=== PATIENT | male | born 1935 | race Caucasian/White ===

== ENCOUNTER 2020-01-31 12:43 | Emergency (ER) | payer MEDICARE ==
[~2020-01-31] VITALS: Ht 172.7 cm; Wt 66.0 kg
[~2020-01-31 12:43] MED LIST: ALBU8.5H6 INH; ASPI325T8 PO; DOXA2TAB2 PO; FAMO20TA5 PO; LEVO112T49 PO; LORA0.5T PO; LOSA100T14 PO; LOVA40TA2 PO; OMEP20TA8 PO
[2020-01-31 14:21] LABS: BASO % 1 % (0-3); EOS # 0.4 x10^3/uL (0.0-0.7); EOS % 5 % (0-3); HEMATOCRIT 39.3 % (39.0-53.0); HEMOGLOBIN 13.2 g/dL (13.0-17.5); LYMPH # 1.3 x10^3/uL (1.0-4.8); LYMPH % 16 % (24-48); MEAN CORPUSCULAR HEMOGLOBIN 30 pg (25-35); MEAN CORPUSCULAR HGB CONC 34 g/dL (31-37); MEAN CORPUSCULAR VOLUME 90 fL (79-100); MONO # 0.8 x10^3/uL (0.0-1.1); MONO % 10 % (0-9); NEUT # 5.4 x10^3/uL (1.8-7.7); NEUT % 69 % (31-73); PLATELET COUNT 264 x10^3/uL (140-400); RED BLOOD COUNT 4.37 x10^6/uL (4.30-5.70); RED CELL DISTRIBUTION WIDTH 14.4 % (11.5-14.5); WHITE BLOOD COUNT 7.9 x10^3/uL (4.0-11.0)
--- NOTE | 2020-01-31 14:41 | EKG ---
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
[2020-01-31 14:44] LABS: CALCIUM 8.9 mg/dL (8.5-10.1); POTASSIUM 4.2 mmol/L (3.5-5.1)
[2020-01-31 14:47] LABS: ALBUMIN 2.9 g/dL (3.4-5.0); ALBUMIN/GLOBULIN RATIO 0.7 (1.0-1.7); TOTAL BILIRUBIN 0.3 mg/dL (0.2-1.0)
--- NOTE | 2020-01-31 15:02 | RAD ---
CT HEAD INDICATION: Confusion, unsteady gait COMPARISON: 04/03/2014 Exposure: One or more of the following individualized dose reduction techniques were utilized for this examination: 1. Automated exposure control 2. Adjustment of the mA and/or kV according to patient size 3. Use of iterative reconstruction technique TECHNIQUE: 5 mm contiguous axial images were obtained from the skull base to the vertex in both bone and soft tissue algorithm. FINDINGS: Mild bilateral periventricular white matter hypodensities likely chronic small vessel ischemic disease. Mild age-related cerebral atrophy changes. No abnormal attenuation within the brain parenchyma. No evidence of acute intracranial hemorrhage. No extra-axial fluid collections. No mass effect or midline shift. Ventricular size is appropriate. Basal cisterns are patent. No fractures identified.Avila-white differentiation is preserved.Globes and orbits are within normal limits. Paranasal sinuses and mastoid air cells are clear. IMPRESSION: No acute intracranial findings. Electronically signed by: Wellington Desai MD (01/31/2020 2:59 PM) [id number]
--- NOTE | 2020-01-31 15:36 | PHYS DOC ---
Past Medical History Past Medical History: Anxiety, High Cholesterol, Hypertension, Other Additional Past Medical Histor: emphysema Past Surgical History: Appendectomy, Tonsillectomy Smoking Status: Former Smoker Alcohol Use: None Drug Use: None General Adult EDM: Chief Complaint: NEURO SYMPTOMS/DEFICITS HPI: HPI: Patient is a 84 year old male who was brought here by his son for evaluation of increased memory loss, forgetfulness. Patient also sometimes has unsteady gait when he walks. The symptoms have been going on for about 3 months. Patient son who brought the patient here indicate that patient appeared to be normal to him. Patient's son who do not live with patient. Patient's called here and provide the information. Patient denies any headache, no chest pain, no abdominal pain, no nausea vomiting. Patient denies any fever, no headache, no neck pain, no slow speech, no weakness anywhere. Patient said he has COPD. Patient said he had not been exposed to anybody who tested positive COVID-19. Review of Systems: Review of Systems: Constitutional: Denies fever or chills. [] Eyes: Denies change in visual acuity. [] HENT: Denies nasal congestion or sore throat. [] Respiratory: Denies cough or shortness of breath. [] Cardiovascular: Denies chest pain or edema. [] GI: Denies abdominal pain, nausea, vomiting, bloody stools or diarrhea. [] : Denies dysuria. [] Musculoskeletal: Denies back pain or joint pain. [] Integument: Denies rash. [] Neurologic: Denies headache, focal weakness or sensory changes. Positive for memory loss, unsteady gait Endocrine: Denies polyuria or polydipsia. [] Lymphatic: Denies swollen glands. [] Psychiatric: Denies depression or anxiety. [] Heart Score: Risk Factors: Risk Factors: DM, Current or recent (<one month) smoker, HTN, HLP, family his tory of CAD, obesity. Risk Scores: Score 0 - 3: 2.5% MACE over next 6 weeks - Discharge Home Score 4 - 6: 20.3% MACE over next 6 weeks - Admit for Clinical Observation Score 7 - 10: 72.7% MACE over next 6 weeks - Early Invasive Strategies Allergies: Allergies: Allergies Coded Allergies Type Severity Reaction Last Updated Verified Sulfa (Sulfonamide Antibiotics) Allergy Intermediate itching 05/17/14 Yes dicyclomine Allergy Intermediate itching 05/17/14 Yes Physical Exam: PE: Constitutional: Well developed, well nourished, no acute distress, non-toxic appearance. [] HENT: Normocephalic, atraumatic, bilateral external ears normal, oropharynx moist, no oral exudates, nose normal. [] Eyes: PERRLA, EOMI, conjunctiva normal, no discharge. [] Neck: Normal range of motion, no tenderness, supple, no stridor. [] Cardiovascular:Heart rate regular rhythm, no murmur [] Lungs & Thorax: Bilateral breath sounds clear to auscultation [] Abdomen: Bowel sounds normal, soft, no tenderness, no masses, no pulsatile masses. [] Skin: Warm, dry, no erythema, no rash. [] Back: No tenderness, no CVA tenderness. [] Extremities: No tenderness, no cyanosis, no clubbing, ROM intact, no edema. [] Neurologic: Alert and oriented X 3, normal motor function, normal sensory function, no focal deficits noted. [] Psychologic: Affect normal, judgement normal, mood normal. [] Current Patient Data: Labs: Laboratory Tests Test 01/31/20 14:10 White Blood Count 7.9 x10^3/uL (4.0-11.0) Red Blood Count 4.37 x10^6/uL (4.30-5.70) Hemoglobin 13.2 g/dL (13.0-17.5) Hematocrit 39.3 % (39.0-53.0) Mean Corpuscular Volume 90 fL (79-100) Mean Corpuscular Hemoglobin 30 pg (25-35) Mean Corpuscular Hemoglobin Concent 34 g/dL (31-37) Red Cell Distribution Width 14.4 % (11.5-14.5) Platelet Count 264 x10^3/uL (140-400) Neutrophils (%) (Auto) 69 % (31-73) Lymphocytes (%) (Auto) 16 % (24-48) L Monocytes (%) (Auto) 10 % (0-9) H Eosinophils (%) (Auto) 5 % (0-3) H Basophils (%) (Auto) 1 % (0-3) Neutrophils # (Auto) 5.4 x10^3/uL (1.8-7.7) Lymphocytes # (Auto) 1.3 x10^3/uL (1.0-4.8) Monocytes # (Auto) 0.8 x10^3/uL (0.0-1.1) Eosinophils # (Auto) 0.4 x10^3/uL (0.0-0.7) Basophils # (Auto) 0.0 x10^3/uL (0.0-0.2) Prothrombin Time 13.0 SEC (11.7-14.0) Prothrombin Time INR 1.0 (0.8-1.1) Activated Partial Thromboplast Time 28 SEC (24-38) Sodium Level 136 mmol/L (136-145) Potassium Level 4.2 mmol/L (3.5-5.1) Chloride Level 99 mmol/L (98-107) Carbon Dioxide Level 30 mmol/L (21-32) Anion Gap 7 (6-14) Blood Urea Nitrogen 25 mg/dL (8-26) Creatinine 1.0 mg/dL (0.7-1.3) Estimated GFR (Cockcroft-Gault) 71.0 BUN/Creatinine Ratio 25 (6-20) H Glucose Level 136 mg/dL (70-99) H Calcium Level 8.9 mg/dL (8.5-10.1) Total Bilirubin 0.3 mg/dL (0.2-1.0) Aspartate Amino Transferase (AST) 19 U/L (15-37) Alanine Aminotransferase (ALT) 19 U/L (16-63) Alkaline Phosphatase 66 U/L (46-116) Troponin I Quantitative < 0.017 ng/mL (0.000-0.055) Total Protein 7.0 g/dL (6.4-8.2) Albumin 2.9 g/dL (3.4-5.0) L Albumin/Globulin Ratio 0.7 (1.0-1.7) L Lipase 72 U/L (73-393) L Laboratory Tests 01/31/20 14:10 Laboratory Tests 01/31/20 14:10 Vital Signs: Vital Signs Date Time Temp Pulse Resp B/P (MAP) Pulse Ox O2 Delivery O2 Flow Rate FiO2 01/31/20 13:27 98.3 83 16 149/87 (107) 97 Room Air 98.3 EKG: EKG: EKG was done at 1403, read by this physician, heart rate of 89 bpm, sinus rhythm, some PVC, no ST segment elevation. [] Radiology/Procedures: Radiology/Procedures: [][facility] [address] [place] [address] IMAGING REPORT Signed PATIENT: TERRANCE AGARWAL ACCOUNT: [id number] : 1935 LOCATION: ER AGE: 84 SEX: M EXAM STATUS: REG ER ORD. PHYSICIAN: LASHAUN HONG DO REASON: being confused, unsteady gait PROCEDURE: CT HEAD WO CONTRAST CT HEAD INDICATION: Confusion, unsteady gait COMPARISON: 04/03/2014 Exposure: One or more of the following individualized dose reduction techniques were utilized for this examination: 1. Automated exposure control 2. Adjustment of the mA and/or kV according to patient size 3. Use of iterative reconstruction technique TECHNIQUE: 5 mm contiguous axial images were obtained from the skull base to the vertex in both bone and soft tissue algorithm. FINDINGS: Mild bilateral periventricular white matter hypodensities likely chronic small vessel ischemic disease. Mild age-related cerebral atrophy changes. No abnormal attenuation within the brain parenchyma. No evidence of acute intracranial hemorrhage. No extra-axial fluid collections. No mass effect or midline shift. Ventricular size is appropriate. Basal cisterns are patent. No fractures identified.Avila-white differentiation is preserved.Globes and orbits are within normal limits. Paranasal sinuses and mastoid air cells are clear. IMPRESSION: No acute intracranial findings. Electronically signed by: Wellington Desai MD (01/31/2020 2:59 PM) [id number] DICTATED and SIGNED BY: WELLINGTON DESAI MD DATE: 01/31/20 1459 Course & Med Decision Making: Course & Med Decision Making Pertinent Labs and Imaging studies reviewed. (See chart for details) Patient is an 84-year-old male who was evaluated in the ER due to progressive memory loss. Sometimes unsteady gait. Patient has been eating and drinking in the ED without any problem, he has been walking by himself without a problem. Work-up in the ED did not show any acute problem. Patient was awake alert oriented. Patient's speech was normal, no focal deficits. Patient did not need to be admitted to the hospital for symptoms of been going on for 3 months. Patient will need to follow-up with her family doctor for outpatient evaluation. Brigida Disclaimer: Brigida Disclaimer: This electronic medical record was generated, in whole or in part, using a voice recognition dictation system. Departure Departure Impression: Primary Impression: Dementia Additional Impression: Weakness Disposition: HOME, SELF-CARE Condition: IMPROVED Referrals: KORINA ENRIQUEZ MD (PCP) PLEASE FOLLOW UP WITH YOUR FAMILY DOCTOR FOR OUTPATIENT EVALUATION WITH MRI OF YOUR BRAIN Patient Instructions: Dementia, Weakness LASHAUN HONG DO January 31, 2020 15:36
[2020-01-31] MEDS ORDERED: IV NORMAL SALINE 500ML BAG 500 ML IV ONE (16:15)
--- NOTE | 2020-01-31 16:34 | RAD ---
EXAM: AP View of the chest DATE: 01/31/2020 4:11 PM INDICATION: Cough COMPARISON: 04/03/2014 FINDINGS: The heart is not enlarged. Mediastinal and hilar contours are stable. Bilateral interstitial prominence is seen. No lobar consolidation. Trace blunting left costophrenic angle likely trace left pleural effusion. No pneumothorax. IMPRESSION: Bilateral interstitial prominence is seen findings may be seen with atypical infectious or inflammatory process. Interstitial edema may also result in this appearance Electronically signed by: René De Paz MD (01/31/2020 4:31 PM) NIDIA
[2020-01-31 16:42] LABS: BILIRUBIN,URINE NEGATIVE (NEG); CLARITY,URINE CLEAR; COLOR,URINE YELLOW; NITRITE,URINE NEGATIVE (NEG); PH,URINE 6.5 (<5.0-8.0); PROTEIN,URINE NEGATIVE (NEG-TRACE); UROBILINOGEN,URINE 0.2 mg/dL (0.2 mg/dL)
[2020-01-31 16:43] LABS: BACTERIA,URINE 0 /HPF (0-FEW); HYALINE CASTS, URINE FEW /HPF; RBC,URINE 0 /HPF (0-2); WBC,URINE 0 /HPF (0-4)
[2020-01-31 17:44] VITALS: BP 181/100
== END 2020-01-31 18:10 | disposition home or self-care (01) ==
LOC: ER 12:43
DX: F03.90 Unspecified dementia, unspecified severity, without behavioral disturbance, psychotic disturbance, mood disturbance, and anxiety (principal); R53.1 Weakness; R41.3 Other amnesia; F41.9 Anxiety disorder, unspecified; E78.00 Pure hypercholesterolemia, unspecified; I10 Essential (primary) hypertension; Z90.89 Acquired absence of other organs; Z98.890 Other specified postprocedural states; Z87.891 Personal history of nicotine dependence; Z88.2 Allergy status to sulfonamides; Z88.6 Allergy status to analgesic agent
CPT/HCPCS: 36415; 70450; 71045; 80053; 81001; 83690; 84484; 85025; 85610; 85730; 93005; 99285; J7040

== ENCOUNTER 2020-05-17 16:30 | Emergency (ER) | payer MEDICARE ==
[~2020-05-17] VITALS: Ht 172.7 cm; Wt 59.1 kg
--- NOTE | 2020-05-17 17:23 | PHYS DOC ---
Past Medical History Past Medical History: Anxiety, High Cholesterol, Hypertension Additional Past Medical Histor: emphysema Past Surgical History: Appendectomy, Tonsillectomy Smoking Status: Former Smoker Alcohol Use: None Drug Use: None General Adult EDM: Chief Complaint: ABDOMINAL PAIN HPI: HPI: Patient is a 85 year old male, accompanied by his , with complaints of constipation for the last 4 to 5 days. Patient reports that he gave himself a fleets enema at home at approximately 1530 this afternoon and has since developed bloody liquid stool and rectal pressure. He denies any nausea, vomiting, abdominal pain, shortness of breath, chest pain, palpitations, fever, fatigue, dysuria, hematuria, or difficulty with urination. Patient denies any recent use of opiates. He reports that the blood from his rectum appeared bright red in color. He denies having any black or tarry stools prior to the onset of the bleeding after the enema this evening. He currently rates the pain a 6 out of 10 on the pain scale is located in his rectum, it does not radiate, the pain feels like pressure. He denies any alleviating factors, the pain became worse after the enema. Review of Systems: Review of Systems: Constitutional: Denies fever or chills. [] HENT: Denies nasal congestion or sore throat. [] Respiratory: Denies cough or shortness of breath. [] Cardiovascular: Denies chest pain or edema. [] GI: Denies abdominal pain, nausea, or vomiting; see HPI : Denies dysuria. [] Musculoskeletal: Denies back pain or joint pain. [] Integument: Denies rash. [] Neurologic: Denies headache Psychiatric: Denies depression or anxiety. [] Heart Score: Risk Factors: Risk Factors: DM, Current or recent (<one month) smoker, HTN, HLP, family history of CAD, obesity. Risk Scores: Score 0 - 3: 2.5% MACE over next 6 weeks - Discharge Home Score 4 - 6: 20.3% MACE over next 6 weeks - Admit for Clinical Observation Score 7 - 10: 72.7% MACE over next 6 weeks - Early Invasive Strategies Allergies: Allergies: Allergies Coded Allergies Type Severity Reaction Last Updated Verified Sulfa (Sulfonamide Antibiotics) Allergy Intermediate itching 05/17/14 Yes dicyclomine Allergy Intermediate itching 05/17/14 Yes Physical Exam: PE: Constitutional: Well developed, well nourished, no acute distress, non-toxic appearance. [] HENT: Normocephalic, atraumatic, bilateral external ears normal, nose normal. [] Eyes: PERRLA, EOMI, conjunctiva normal, no discharge. [] Neck: Normal range of motion, no stridor. [] Cardiovascular:Heart rate regular rhythm Lungs & Thorax: Respirations even and unlabored, no retractions, no respiratory distress, lungs CTA Abdomen: soft, no tenderness, bowel sounds active Rectal Exam: Elisa GONZALEZ as machine molder squeeze normal tone, large mass of impacted stool, Positive control, visible hemorrhoids without thrombosis Stool: Brown with bright red streaks likely due to hemorrhoids present Guaiac: Positive Skin: Warm, dry, no erythema, no rash. [] Extremities: No cyanosis, ROM intact, no edema. [] Neurologic: Alert and oriented X 3, no focal deficits noted. [] Psychologic: Affect normal, judgement normal, mood normal. [] Current Patient Data: Vital Signs: Vital Signs Date Time Temp Pulse Resp B/P (MAP) Pulse Ox O2 Delivery O2 Flow Rate FiO2 05/17/20 16:45 98.2 94 18 110/69 (83) 96 Nasal Cannula 2.0 98.2 EKG: EKG: [] Radiology/Procedures: Radiology/Procedures: PROCEDURE: CT ABD PELV W/ IV CONTRST ONLY CT scan of the abdomen and pelvis with contrast 05/17/2020 CLINICAL HISTORY: Rectal bleeding after home enema. TECHNIQUE: After the intravenous administration of 75 cc of Omnipaque 300 only, contiguous, 5 mm axial sections were obtained through the abdomen and pelvis. One or more of the following individualized dose reduction techniques were utilized for this study: 1. Automated exposure control. 2. Adjustment of the mA and/or kV according to patient size. 3. Use of iterative reconstruction technique. FINDINGS: Images through the lung bases demonstrate bronchiectasis bilaterally. Areas of honeycombing are seen bilaterally. The liver, spleen, pancreas, and adrenal glands are within normal limits. A 3 mm nonobstructing calculus is seen involving the midpole of the right kidney. A 2 mm nonobstructing calculus is seen involving the lower pole of the left kidney. Rounded low-attenuation lesions are seen involving both kidneys which measure 5 mm to 2.3 cm in size. They likely represent cysts. No further imaging workup is recommended. The gallbladder is slightly contracted. Atherosclerotic calcification of the abdominal aorta and its branches is noted. The abdominal aorta is focally dilated in its mid/distal portion measuring 3.1 cm in greatest AP diameter and 2.8 cm in greatest transverse diameter. No extension to involve either common iliac artery is seen. A moderate amount of stool is seen throughout the colon. Multiple diverticula are seen involving the colon. No inflammatory changes are seen in the adjacent fat. There is no evidence of bowel obstruction. No free fluid or free air is seen within the abdomen. Images through the pelvis demonstrate the urinary bladder distended with urine. The prostate gland is enlarged likely related to BPH. A moderate to large amount of stool is seen within the rectum. Calcifications are seen within the pelvis consistent with phleboliths. Very mild S-shaped curvature of the thoracolumbar spine is seen. Degenerative changes are seen involving the lower thoracic and throughout the lumbar spine along with both hips. IMPRESSION: 1. 3.1 cm focal infrarenal abdominal aortic aneurysm. 2. Colonic diverticulosis. 3. No acute abnormality is seen. [] Course & Med Decision Making: Course & Med Decision Making Pertinent Labs and Imaging studies reviewed. (See chart for details) 85-year-old male presented to the emergency department with complains of increased pain in his rectum after doing an enema for constipation. Work-up included labs, CT abdomen pelvis with IV contrast, and a rectal exam with disimpaction by myself CBC revealed a hemoglobin of 12.1, hematocrit of 35.9, otherwise unremarkable; PT/INR within normal limits; CMP revealed a BUN of 27, glucose of 129, otherwise unremarkable; stool was occult positive. CT abdomen revealed no free air or acute findings to suggest perforation. The patient was given a fleets enema in the emergency department following the CT. He reported feeling better after the bowel movement. Patient's vital signs are stable throughout the emergency department discharge his oxygen saturation was 96 to 97% on room air. A prescription was written for MiraLAX. The patient was instructed to drink 1 capful in 8 ounces of water or juice twice a day for the next 3 days then once daily until stools are regular. I recommend that the patient follow-up with his primary care doctor next week, return to the ER symptoms worsen. Patient and his verbalized an understanding of home care, medications, follow-up, and return to ED instructions and were in agreement with the plan of care. [] Dragon Disclaimer: Dragon Disclaimer: This electronic medical record was generated, in whole or in part, using a voice recognition dictation system. Departure Departure Impression: Primary Impression: Impacted stool in rectum Additional Impression: Constipation Qualified Codes: K59.00 - Constipation, unspecified Disposition: HOME, SELF-CARE Condition: STABLE Referrals: KORINA ENRIQUEZ MD (PCP) Patient Instructions: Constipation, Adult, [id number], Fecal Impaction Additional Instructions: Fill prescriptions and use them as directed. Increase clear fluid intake, follow the constipation prescriptions provided. Follow-up with your primary care doctor in 1 to 2 days, return to the ER if symptoms worsen. Scripts Polyethylene Glycol 3350 (MIRALAX) 119 Gm Powder 17 GM PO BID for constipation for 5 Days, #255 GM 0 Refills Drink 1 capful in 8 oz of water twice daily for 5 days then once a day to keep stools regular Prov: BISI ESTEVES PUBLIC HEALTH INSPECTOR 05/17/20 Justicifation of Admission Dx: Justifications for Admission: Justification of Admission Dx: N/A BISI ESTEVES PUBLIC HEALTH INSPECTOR May 17, 2020 17:23
[2020-05-17 17:31] LABS: BASO # 0.1 x10^3/uL (0.0-0.2); BASO % 1 % (0-3); EOS # 0.4 x10^3/uL (0.0-0.7); EOS % 5 % (0-3); HEMATOCRIT 35.9 % (39.0-53.0); HEMOGLOBIN 12.1 g/dL (13.0-17.5); LYMPH # 0.9 x10^3/uL (1.0-4.8); LYMPH % 11 % (24-48); MEAN CORPUSCULAR HEMOGLOBIN 29 pg (25-35); MEAN CORPUSCULAR HGB CONC 34 g/dL (31-37); MEAN CORPUSCULAR VOLUME 87 fL (79-100); MONO # 0.7 x10^3/uL (0.0-1.1); MONO % 9 % (0-9); NEUT % 75 % (31-73); PLATELET COUNT 420 x10^3/uL (140-400); RED BLOOD COUNT 4.12 x10^6/uL (4.30-5.70); RED CELL DISTRIBUTION WIDTH 15.9 % (11.5-14.5)
[2020-05-17 17:38] LABS: CALCIUM 8.7 mg/dL (8.5-10.1); GFR 70.8; POTASSIUM 4.2 mmol/L (3.5-5.1)
[2020-05-17 17:40] LABS: PROTHROMBIN TIME PATIENT 13.6 SEC (11.7-14.0)
[2020-05-17 17:44] LABS: ALBUMIN 2.7 g/dL (3.4-5.0); ALBUMIN/GLOBULIN RATIO 0.6 (1.0-1.7); TOTAL BILIRUBIN 0.5 mg/dL (0.2-1.0); TOTAL PROTEIN 7.6 g/dL (6.4-8.2)
[2020-05-17] MEDS ORDERED: IOHEXOL 300 MG/ML 100ML VIAL. IV ONE (17:45)
[2020-05-17 19:07] LABS: FECAL OB PT POSITIVE (NEG)
--- NOTE | 2020-05-17 20:00 | RAD ---
CT scan of the abdomen and pelvis with contrast 05/17/2020 CLINICAL HISTORY: Rectal bleeding after home enema. TECHNIQUE: After the intravenous administration of 75 cc of Omnipaque 300 only, contiguous, 5 mm axial sections were obtained through the abdomen and pelvis. One or more of the following individualized dose reduction techniques were utilized for this study: 1. Automated exposure control. 2. Adjustment of the mA and/or kV according to patient size. 3. Use of iterative reconstruction technique. FINDINGS: Images through the lung bases demonstrate bronchiectasis bilaterally. Areas of honeycombing are seen bilaterally. The liver, spleen, pancreas, and adrenal glands are within normal limits. A 3 mm nonobstructing calculus is seen involving the midpole of the right kidney. A 2 mm nonobstructing calculus is seen involving the lower pole of the left kidney. Rounded low-attenuation lesions are seen involving both kidneys which measure 5 mm to 2.3 cm in size. They likely represent cysts. No further imaging workup is recommended. The gallbladder is slightly contracted. Atherosclerotic calcification of the abdominal aorta and its branches is noted. The abdominal aorta is focally dilated in its mid/distal portion measuring 3.1 cm in greatest AP diameter and 2.8 cm in greatest transverse diameter. No extension to involve either common iliac artery is seen. A moderate amount of stool is seen throughout the colon. Multiple diverticula are seen involving the colon. No inflammatory changes are seen in the adjacent fat. There is no evidence of bowel obstruction. No free fluid or free air is seen within the abdomen. Images through the pelvis demonstrate the urinary bladder distended with urine. The prostate gland is enlarged likely related to BPH. A moderate to large amount of stool is seen within the rectum. Calcifications are seen within the pelvis consistent with phleboliths. Very mild S-shaped curvature of the thoracolumbar spine is seen. Degenerative changes are seen involving the lower thoracic and throughout the lumbar spine along with both hips. IMPRESSION: 1. 3.1 cm focal infrarenal abdominal aortic aneurysm. 2. Colonic diverticulosis. 3. No acute abnormality is seen. Electronically signed by: Tom King MD (05/17/2020 7:56 PM) [id number]
[2020-05-17 20:27] VITALS: BP 139/70
[2020-05-17] MEDS ORDERED: SODIUM PHOSPHATES 19/7GM 133 ML ENEMA. PR ONE (20:45)
[2020-05-17] MEDS ORDERED: POLY119P4 PO (21:25)
== END 2020-05-17 21:35 | disposition home or self-care (01) ==
LOC: ER 16:30
DX: K56.41 Fecal impaction (principal); F41.9 Anxiety disorder, unspecified; E78.00 Pure hypercholesterolemia, unspecified; I10 Essential (primary) hypertension; Z90.89 Acquired absence of other organs; Z87.891 Personal history of nicotine dependence; Z88.2 Allergy status to sulfonamides; Z88.8 Allergy status to other drugs, medicaments and biological substances
CPT/HCPCS: 36415; 74177; 80053; 82274; 85025; 85610; 99285; Q9967

== ENCOUNTER → 2020-06-29 | Outpatient (CLI) | payer MEDICARE ==
[~2020-06-29] MED LIST changes: +POLY119P4 PO
== END | disposition home or self-care (01) ==
LOC: PF 10:53
PROVIDERS: ATTEND Internal Medicine
DX: J44.9 Chronic obstructive pulmonary disease, unspecified (principal)
CPT/HCPCS: 94618

== ENCOUNTER 2021-03-16 01:21 | Inpatient (IN) | payer MEDICARE ==
[2021-03-16] VITALS (16 sets, daily range): BP systolic 85–133; BP diastolic 50–71
[~2021-03-16] VITALS: Ht 172.7 cm; Wt 60.8 kg
--- NOTE | 2021-03-16 01:35 | PHYS DOC ---
Past Medical History Past Medical History: Anxiety, High Cholesterol, Hypertension Additional Past Medical Histor: emphysema Past Surgical History: Appendectomy, Tonsillectomy Smoking Status: Former Smoker Alcohol Use: None Drug Use: None General Adult EDM: Chief Complaint: CHEST PAIN HPI: HPI: Patient is a 85 year old male with a past medical history of hypertension and hyperlipedmia presents with the chief complaint of chest pain. Patient states pain was presents when he woke up @ 0900hrs yesterday. Pain is primarily to left scapular with radiation to substernal chest, neck and lower abdomen. Pain is currently rated a 7/10. He states he has associated shortness of breath and nausea. Pain became progressively worse tonight so he called 911. Review of Systems: Review of Systems: Review of systems: Constitutional symptoms- No fever, no chills. Eyes- No Discharge, No Visual Loss Respiratory symptoms- Positive shortness of breath, No wheezing, No Dyspnea on Exertion Cardiovascular Systems; Positive chest pain, No Palpitations, No syncope Gastrointestinal symptoms: NO abdominal pain, no nausea, no vomiting or diarrhea. Genitourinary symptoms: No dysuria. Musculoskeletal symptoms: No back pain No extremity pain. NEUROLOGICAL Symptoms: No headache, no generalized weakness; No focal Weakness Skin: No rash. Heart Score: C/O Chest Pain: Yes HEART Score for Chest Pain: HEART Score for Chest Pain Response (Comments) Value History Moderately Suspicious 1 ECG Nonspecific Repolarizatio 1 Age > 65 2 Risk Factors 1 or 2 Risk Factors 1 Total 5 Risk Factors: Risk Factors: DM, Current or recent (<one month) smoker, HTN, HLP, family history of CAD, obesity. Risk Scores: Score 0 - 3: 2.5% MACE over next 6 weeks - Discharge Home Score 4 - 6: 20.3% MACE over next 6 weeks - Admit for Clinical Observation Score 7 - 10: 72.7% MACE over next 6 weeks - Early Invasive Strategies Allergies: Allergies: Allergies Coded Allergies Type Severity Reaction Last Updated Verified Sulfa (Sulfonamide Antibiotics) Allergy Intermediate itching 05/17/14 Yes dicyclomine Allergy Intermediate itching 05/17/14 Yes Physical Exam: PE: General: alert, no acute distress. Skin: warm, dry and intact. HENT: bilateral external ears normal, oropharynx moist, nose normal. Head:: Normocephalic, atraumatic. Neck: Trachea midline. Eyes: EOMI, Normal conjunctiva, No drainage CARDIOVASCULAR: Regular rate and rhythm RESPIRATORY: No respiratory distress Back: Full range of motion. Skin: Warm, dry, no erythema, no rash. MUSCULOSKELETAL: Full range of motion of bilateral upper and lower extremities. GASTROINTESTINAL: Abdomen soft without rebound or guarding. NEUROLOGICAL: Alert and noted to person, place and time. No neurological deficits observed Psychiatric: Cooperative. Normal judgment EKG: EKG: Performed at 0125 Rate [address] elevation No ST depression No acute HI [] Radiology/Procedures: Radiology/Procedures: [] Impression: Xray wet read No focal infiltrate Course & Med Decision Making: Course & Med Decision Making Pertinent Labs and Imaging studies reviewed. (See chart for details) [] Patient was evaluated for chief complaint. Work-up consisted of laboratory analysis EKG and radiologic imaging. Results reviewed and discussed with patient. Patient found to have troponin of greater than 6.0. EKG without acute ischemic changes. Treatment included aspirin. Patient's received nitroglycerin but denied any improvement of pain with this treatment. Patient's pain controlled with morphine. Patient's pain initially 7 out of 10 improved to 3 out of 10. Patient was heparinized. He was admitted to the hospitalist with a cardiology consult. Brigida Disclaimer: Brigida Disclaimer: This electronic medical record was generated, in whole or in part, using a voice recognition dictation system. Departure Departure Impression: Primary Impression: Chest pain Additional Impression: NSTEMI (non-ST elevated myocardial infarction) Disposition: ADMITTED INPATIENT Condition: STABLE Referrals: KORINA ERNIQUEZ MD (PCP) HAILE ABREU DO Mar 16, 2021 01:35
[2021-03-16] MEDS ORDERED: NITROGLYCERIN SUBLINGUAL 0.4 MG BOTTLE OF 25. SL PRN (01:45)
[2021-03-16 01:54] LABS: BASO # 0.1 x10^3/uL (0.0-0.2); BASO % 1 % (0-3); EOS # 0.2 x10^3/uL (0.0-0.7); EOS % 2 % (0-3); HEMATOCRIT 35.8 % (39.0-53.0); HEMOGLOBIN 11.9 g/dL (13.0-17.5); LYMPH # 0.8 x10^3/uL (1.0-4.8); LYMPH % 7 % (24-48); MEAN CORPUSCULAR HEMOGLOBIN 30 pg (25-35); MEAN CORPUSCULAR HGB CONC 33 g/dL (31-37); MEAN CORPUSCULAR VOLUME 89 fL (79-100); MONO # 1.1 x10^3/uL (0.0-1.1); MONO % 9 % (0-9); NEUT # 9.5 x10^3/uL (1.8-7.7); NEUT % 82 % (31-73); PLATELET COUNT 259 x10^3/uL (140-400); RED BLOOD COUNT 4.04 x10^6/uL (4.30-5.70); WHITE BLOOD COUNT 11.6 x10^3/uL (4.0-11.0)
--- NOTE | 2021-03-16 01:59 | EKG ---
[facility] [address] [place] [address] Test Date: 2021-03-16 Test Time: 01:25:32 Pat Name: TERRANCE AGARWAL Department: Room: Gender: M Tool [employer]: : 1935 Requested By: HAILE ABREU Order Number: [id number] Reading MD: Measurements Intervals [place] Rate: 95 P: -43 WA: 178 QRS: 42 QRSD: 92 T: -26 QT: 344 QTc: 435 Interpretive Statements SINUS RHYTHM QRS(T) CONTOUR ABNORMALITY CONSISTENT WITH INFERIOR INFARCT AGE UNDETERMINED ABNORMAL ECG RI6.02 No previous ECG available for comparison
[2021-03-16] MEDS ORDERED: ASPIRIN CHEWABLE 81 MG TABLET. PO ONE (02:00)
[2021-03-16 02:03] LABS: CALCIUM 8.8 mg/dL (8.5-10.1); CREATININE 1.3 mg/dL (0.7-1.3); GFR 52.3; POTASSIUM 4.3 mmol/L (3.5-5.1)
[2021-03-16 02:11] LABS: ALBUMIN 2.9 g/dL (3.4-5.0); ALBUMIN/GLOBULIN RATIO 0.7 (1.0-1.7); MAGNESIUM 2.1 mg/dL (1.8-2.4); TOTAL BILIRUBIN 0.4 mg/dL (0.2-1.0)
[2021-03-16] MEDS ORDERED: MORPHINE SULFATE 4 MG/ML VIAL. IV ONE (02:30)
[2021-03-16] MEDS ORDERED: ONDANSETRON PF 4 MG/2 ML VIAL. IV PRN (02:45)
--- NOTE | 2021-03-16 02:53 | NUR ---
The patient, TERRANCE AGARWAL, 85 y/o, M admitted by MAGALYS SOSA MD, was given written information regarding hospital policies, unit procedures and contact persons. Valuables were checked and left with him .
[2021-03-16] MEDS ORDERED: HEPARIN for IV BOLUS 10,000 UNIT/10 ML VIAL. IV ONE (03:00)
[2021-03-16] MEDS ORDERED: HEPARIN 25,000UTS/250ML PREMIX 250 ML IV ONE (03:00)
[2021-03-16] MEDS: MORPHINE SULFATE 4 MG/ML VIAL. IV PRN ×2 (03:29→17:28)
[2021-03-16 04:01] LABS: PROTHROMBIN TIME PATIENT 14.9 SEC (11.7-14.0)
--- NOTE | 2021-03-16 05:53 | RAD ---
Chest AP portable at 0201: Reason for examination: Chest pain. The heart size is normal. Mediastinum is unchanged. Lung curry continue show mild increase in inters titial markings bilaterally. This appears be slightly more prominent than on previous exam and may re present interstitial pneumonia or some interstitial edema. Recommend clinical correlation. No new con solidative infiltrates or pleural effusions are evident. No acute bony abnormalities are seen. IMPRESSION: Increase in interstitial markings bilaterally. This may represent interstitial infiltrates or edema. Recommend clinical correlation and follow-up. Electronically signed by: Elana Lee MD (03/16/2021 5:51 AM) JERRY
[2021-03-16] MEDS ORDERED: LIDOCAINE 1% Multi-Dose 20 ML VIAL. ONE (09:56)
[2021-03-16] MEDS ORDERED: IODIXANOL 320 MG/ML 100 ML VIAL. ONE (09:57)
[2021-03-16] MEDS ORDERED: fentaNYL PF VIAL 100 MCG/2 ML VIAL ONE (10:13)
[2021-03-16] MEDS ORDERED: MIDAZOLAM HCL/PF 5 MG/5 ML VIAL. ONE (10:13)
--- NOTE | 2021-03-16 10:31 | PDOC ---
MODERATE SEDATION ASSESSMENT RISKS/ALTERNATIVES Risks/Alternatives Risks and alternatives of this type of sedation and procedure discussed with: RISK/ALTERNATIVES: Patient H & P ON CHART H & P H & P on chart and reviewed for co-morbid conditions and appropriate labs. H&P ON CHART: Yes STATUS PREG STATUS ASSESSED: N/A MEDS/ALLERGIES REVIEWED Meds/Allergies Reviewed Medications and Allergies including time and route of recently administered narcotics and sedatives. MEDS/ALLERGIES REVIEWED: Yes ASA RATING ASA RATING: II AIRWAY ASSESSMENT Airway Assessment Airway patency, oral function limitations, presence of caps, crowns, dentures, partials, and ability to extend neck assessed. AIRWAY ASSESSMENT: Yes MALLAMPATI SCORE MALLAMPATI SCORE: II PRE-SEDATION ASSESSMENT PRE-SEDATION ASSESSMENT: Yes HOLLI HINKLE MD Mar 16, 2021 10:31
--- NOTE | 2021-03-16 10:32 | PDOC2 ---
CONSULT Date of Consult Date of Consult DATE: 03/16/21 TIME: 10:31 Reason for Consult Reason for Consult: Chest pain Referring Physician Referring Physician: Dr. Chandra Identification/Chief Complaint Chief Complaint Chest pain Source Source: Chart review, Patient History of Present Illness Reason for Visit: 85-year-old male without any prior cardiac history presented complaining of retrosternal chest pain that he described as pressure-like sensation that woke him up from sleep yesterday morning. He took aspirin with slight relief but the pain got worse last night and hence he presented to ED. He stated that his pain improved after admission to the hospital but continues to feel it at approximately 5/10 severity. He denied any orthopnea/PND, palpitations or syncope. Past Medical History Cardiovascular: HTN, Hyperlipidemia Psych: Anxiety Past Surgical History Past Surgical History: Appendectomy, Tonsillectomy Family History Family History Negative for premature coronary artery disease Family History: Hypertension Social History Social History Patient quit smoking several years ago and denied any alcohol or drug use Current Problem List Problem List Problems Medical Problems: (1) Chest pain Status: Acute (2) NSTEMI (non-ST elevated myocardial infarction) Status: Acute Current Medications Current Medications Current Medications Aspirin (Aspirin Chewable) 324 mg 1X ONCE PO Last administered on 03/16/21at 01:47; Start 03/16/21 at 02:00; Stop 03/16/21 at 02:01; Status DC Nitroglycerin (Nitrostat) 0.4 mg PRN Q5MIN PRN SL CHEST PAIN Last administered on 03/16/21at 01:48; Start 03/16/21 at 01:45 Morphine Sulfate (Morphine Sulfate) 4 mg 1X ONCE IV ; Start 03/16/21 at 02:30; Stop 03/16/21 at 02:31; Status DC Heparin Sodium (Porcine) (Heparin Sodium) 3,700 unit 1X ONCE IV Last administered on 03/16/21at 03:03; Start 03/16/21 at 03:00; Stop 03/16/21 at 03:01; Status DC Heparin Sodium/ Dextrose 250 ml @ 0 mls/hr 1X ONCE IV Last administered on 03/16/21at 03:06; Start 03/16/21 at 03:00; Stop 03/16/21 at 03:01; Status DC Ondansetron HCl (Zofran) 4 mg PRN Q8HRS PRN IV NAUSEA/VOMITING 1ST CHOICE; Start 03/16/21 at 02:45; Stop 03/17/21 at 02:44 Morphine Sulfate (Morphine Sulfate) 4 mg PRN Q2HR PRN IV SEVERE PAIN 7-10 Last administered on 03/16/21at 03:29; Start 03/16/21 at 02:45; Stop 03/17/21 at 02:44 Lidocaine HCl (Lidocaine 1% 20ml Vial) 20 ml STK-MED ONCE .ROUTE ; Start 03/16/21 at 09:56; Stop 03/16/21 at 09:57; Status DC Heparin Sodium/ Sodium Chloride 1,000 ml @ As Directed STK-MED ONCE .ROUTE ; Start 03/16/21 at 09:57; Stop 03/16/21 at 09:57; Status DC Iodixanol (Visipaque 320) 100 ml STK-MED ONCE .ROUTE ; Start 03/16/21 at 09:57; Stop 03/16/21 at 09:57; Status DC Fentanyl Citrate (Fentanyl 2ml Vial) 100 mcg STK-MED ONCE .ROUTE ; Start 03/16/21 at 10:13; Stop 03/16/21 at 10:13; Status DC Midazolam HCl (Versed) 5 mg STK-MED ONCE .ROUTE ; Start 03/16/21 at 10:13; Stop 03/16/21 at 10:13; Status DC Active Scripts Active Miralax (Polyethylene Glycol 3350) 119 Gm Powder 17 Gm PO BID 5 Days Drink 1 capful in 8 oz of water twice daily for 5 days then once a day to keep stools regular Reported Famotidine 20 Mg Tablet 20 Mg PO HS Omeprazole 20 Mg Tablet.dr 20 Mg PO DAILY Lovastatin 40 Mg Tablet 40 Mg PO HS Levothyroxine Sodium 112 Mcg Tablet 112 Mcg PO DAILYAC Aspirin 325 Mg Tablet 325 Mg PO DAILY Albuterol Sulfate Hfa Inhaler (Albuterol Sulfate) 8.5 Gm Hfa.aer.ad 2 Puff INH Q4HRS PRN Lorazepam 0.5 Mg Tablet 0.5 Mg PO PRN Losartan Potassium 100 Mg Tablet 100 Mg PO DAILY Doxazosin Mesylate 2 Mg Tablet 2 Mg PO DAILY Allergies Allergies: Coded Allergies: Sulfa (Sulfonamide Antibiotics) (Verified Allergy, Intermediate, itching, 05/17/14) dicyclomine (Verified Allergy, Intermediate, itching, 05/17/14) ROS PSYCHOLOGICAL ROS: No: Hallucinations Eyes: No Loss of vision HEENT: No: Epistaxis Respiratory: No: Hemoptysis, Shortness of breath Cardiovascular: yes Chest Pain Genitourinary: No Hematuria Neurological: No Seizures Skin: No Rash Physical Exam General: Alert, Oriented X3 HEENT: Atraumatic Lungs: Clear to auscultation Heart: Regular rate Abdomen: Soft, No tenderness Extremities: No edema Psych/Mental Status: Mood NL Vitals VITALS Vital Signs Date Time Temp Pulse Resp B/P (MAP) Pulse Ox O2 Delivery O2 Flow Rate FiO2 03/16/21 08:00 Room Air 03/16/21 07:00 97.8 80 20 92/57 (69) 92 97.8 Labs Labs Laboratory Tests Test 03/16/21 01:43 03/16/21 02:47 03/16/21 07:20 White Blood Count 11.6 x10^3/uL (4.0-11.0) Red Blood Count 4.04 x10^6/uL (4.30-5.70) Hemoglobin 11.9 g/dL (13.0-17.5) Hematocrit 35.8 % (39.0-53.0) Mean Corpuscular Volume 89 fL (79-100) Mean Corpuscular Hemoglobin 30 pg (25-35) Mean Corpuscular Hemoglobin Concent 33 g/dL (31-37) Red Cell Distribution Width 15.0 % (11.5-14.5) Platelet Count 259 x10^3/uL (140-400) Neutrophils (%) (Auto) 82 % (31-73) Lymphocytes (%) (Auto) 7 % (24-48) Monocytes (%) (Auto) 9 % (0-9) Eosinophils (%) (Auto) 2 % (0-3) Basophils (%) (Auto) 1 % (0-3) Neutrophils # (Auto) 9.5 x10^3/uL (1.8-7.7) Lymphocytes # (Auto) 0.8 x10^3/uL (1.0-4.8) Monocytes # (Auto) 1.1 x10^3/uL (0.0-1.1) Eosinophils # (Auto) 0.2 x10^3/uL (0.0-0.7) Basophils # (Auto) 0.1 x10^3/uL (0.0-0.2) Sodium Level 142 mmol/L (136-145) Potassium Level 4.3 mmol/L (3.5-5.1) Chloride Level 104 mmol/L (98-107) Carbon Dioxide Level 29 mmol/L (21-32) Anion Gap 9 (6-14) Blood Urea Nitrogen 37 mg/dL (8-26) Creatinine 1.3 mg/dL (0.7-1.3) Estimated GFR (Cockcroft-Gault) 52.3 BUN/Creatinine Ratio 28 (6-20) Glucose Level 155 mg/dL (70-99) Calcium Level 8.8 mg/dL (8.5-10.1) Magnesium Level 2.1 mg/dL (1.8-2.4) Total Bilirubin 0.4 mg/dL (0.2-1.0) Aspartate Amino Transf (AST/SGOT) 42 U/L (15-37) Alanine Aminotransferase (ALT/SGPT) 13 U/L (16-63) Alkaline Phosphatase 76 U/L (46-116) Troponin I Quantitative 6.400 ng/mL (0.000-0.055) 4.923 ng/mL (0.000-0.055) Total Protein 7.0 g/dL (6.4-8.2) Albumin 2.9 g/dL (3.4-5.0) Albumin/Globulin Ratio 0.7 (1.0-1.7) Prothrombin Time 14.9 SEC (11.7-14.0) Prothromb Time International Ratio 1.2 (0.8-1.1) Activated Partial Thromboplast Time 32 SEC (24-38) Laboratory Tests Test 03/16/21 01:43 03/16/21 02:47 03/16/21 07:20 White Blood Count 11.6 x10^3/uL (4.0-11.0) Red Blood Count 4.04 x10^6/uL (4.30-5.70) Hemoglobin 11.9 g/dL (13.0-17.5) Hematocrit 35.8 % (39.0-53.0) Mean Corpuscular Volume 89 fL (79-100) Mean Corpuscular Hemoglobin 30 pg (25-35) Mean Corpuscular Hemoglobin Concent 33 g/dL (31-37) Red Cell Distribution Width 15.0 % (11.5-14.5) Platelet Count 259 x10^3/uL (140-400) Neutrophils (%) (Auto) 82 % (31-73) Lymphocytes (%) (Auto) 7 % (24-48) Monocytes (%) (Auto) 9 % (0-9) Eosinophils (%) (Auto) 2 % (0-3) Basophils (%) (Auto) 1 % (0-3) Neutrophils # (Auto) 9.5 x10^3/uL (1.8-7.7) Lymphocytes # (Auto) 0.8 x10^3/uL (1.0-4.8) Monocytes # (Auto) 1.1 x10^3/uL (0.0-1.1) Eosinophils # (Auto) 0.2 x10^3/uL (0.0-0.7) Basophils # (Auto) 0.1 x10^3/uL (0.0-0.2) Sodium Level 142 mmol/L (136-145) Potassium Level 4.3 mmol/L (3.5-5.1) Chloride Level 104 mmol/L (98-107) Carbon Dioxide Level 29 mmol/L (21-32) Anion Gap 9 (6-14) Blood Urea Nitrogen 37 mg/dL (8-26) Creatinine 1.3 mg/dL (0.7-1.3) Estimated GFR (Cockcroft-Gault) 52.3 BUN/Creatinine Ratio 28 (6-20) Glucose Level 155 mg/dL (70-99) Calcium Level 8.8 mg/dL (8.5-10.1) Magnesium Level 2.1 mg/dL (1.8-2.4) Total Bilirubin 0.4 mg/dL (0.2-1.0) Aspartate Amino Transf (AST/SGOT) 42 U/L (15-37) Alanine Aminotransferase (ALT/SGPT) 13 U/L (16-63) Alkaline Phosphatase 76 U/L (46-116) Troponin I Quantitative 6.400 ng/mL (0.000-0.055) 4.923 ng/mL (0.000-0.055) Total Protein 7.0 g/dL (6.4-8.2) Albumin 2.9 g/dL (3.4-5.0) Albumin/Globulin Ratio 0.7 (1.0-1.7) Prothrombin Time 14.9 SEC (11.7-14.0) Prothromb Time International Ratio 1.2 (0.8-1.1) Activated Partial Thromboplast Time 32 SEC (24-38) Assessment/Plan Assessment/Plan 1. Non-STEMI: Troponin level 6.4. 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 Patient has ongoing chest pain. Continue heparin infusion and proceed with cardiac catheterization and possible angioplasty. Risks and benefits were explained and he is agreeable. 2. Hypertension: Blood pressure running low. Continue intravenous fluids and start beta-blockers once blood pressure improves. 3. Hyperlipidemia: Continue statins 4. Hypothyroidism: On levothyroxine Thank you for your consultation HOLLI HINKLE MD Mar 16, 2021 10:32
[2021-03-16] MEDS ORDERED: MIDAZOLAM HCL/PF 5 MG/5 ML VIAL. IV ONE (10:45)
[2021-03-16] MEDS ORDERED: IODIXANOL 320 MG/ML 100 ML VIAL. IART ONE (10:45)
[2021-03-16] MEDS ORDERED: LIDOCAINE 1% Multi-Dose 20 ML VIAL. INJ ONE (10:45)
[2021-03-16] MEDS ORDERED: fentaNYL PF VIAL 100 MCG/2 ML VIAL IV ONE (10:45)
[2021-03-16] MEDS ORDERED: CONTRAST GIVEN. MC PRN (11:00)
--- NOTE | 2021-03-16 11:02 | PDOC1 ---
History and Physical Date of Service: DOS: DATE: 03/16/21 TIME: 11:00 Chief Complaint: Chief Complain: Chest pain. History of Present Illness: HPI: History obtained from chart review and discussion with hospitalist 85 year old male with a past medical history of hypertension and hyperlipedmia presents with the chief complaint of chest pain. Patient states pain was presents when he woke up @ 0900hrs yesterday. Pain is primarily to left scapular with radiation to substernal chest, neck and lower abdomen. Pain is currently rated a 7/10. He states he has associated shortness of breath and nausea. Pain became progressively worse tonight so he called 911. Patient taken to the left heart cath as troponins increased to 6.4 Past Medical/Surgical History: PMH/PSH: Past Medical History: Anxiety, High Cholesterol, Hypertension, emphysema Past Surgical History: Appendectomy, Tonsillectomy Allergies: Allergies: Coded Allergies: Sulfa (Sulfonamide Antibiotics) (Verified Allergy, Intermediate, itching, 05/17/14) dicyclomine (Verified Allergy, Intermediate, itching, 05/17/14) Family History: Family History: Reviewed with no relevant findings Social History: Social History: Smoking Status: Former Smoker Alcohol Use: None Drug Use: None Current Medications: Current Medications Current Medications Aspirin (Aspirin Chewable) 324 mg 1X ONCE PO Last administered on 03/16/21at 01:47; Start 03/16/21 at 02:00; Stop 03/16/21 at 02:01; Status DC Nitroglycerin (Nitrostat) 0.4 mg PRN Q5MIN PRN SL CHEST PAIN Last administered on 03/16/21at 01:48; Start 03/16/21 at 01:45 Morphine Sulfate (Morphine Sulfate) 4 mg 1X ONCE IV ; Start 03/16/21 at 02:30; Stop 03/16/21 at 02:31; Status DC Heparin Sodium (Porcine) (Heparin Sodium) 3,700 unit 1X ONCE IV Last administered on 03/16/21at 03:03; Start 03/16/21 at 03:00; Stop 03/16/21 at 03:01; Status DC Heparin Sodium/ Dextrose 250 ml @ 0 mls/hr 1X ONCE IV Last administered on 03/16/21at 03:06; Start 03/16/21 at 03:00; Stop 03/16/21 at 03:01; Status DC Ondansetron HCl (Zofran) 4 mg PRN Q8HRS PRN IV NAUSEA/VOMITING 1ST CHOICE; Start 03/16/21 at 02:45; Stop 03/17/21 at 02:44 Morphine Sulfate (Morphine Sulfate) 4 mg PRN Q2HR PRN IV SEVERE PAIN 7-10 Last administered on 03/16/21at 03:29; Start 03/16/21 at 02:45; Stop 03/17/21 at 02:44 Lidocaine HCl (Lidocaine 1% 20ml Vial) 20 ml STK-MED ONCE .ROUTE ; Start 03/16/21 at 09:56; Stop 03/16/21 at 09:57; Status DC Heparin Sodium/ Sodium Chloride 1,000 ml @ As Directed STK-MED ONCE .ROUTE ; Start 03/16/21 at 09:57; Stop 03/16/21 at 09:57; Status DC Iodixanol (Visipaque 320) 100 ml STK-MED ONCE .ROUTE ; Start 03/16/21 at 09:57; Stop 03/16/21 at 09:57; Status DC Fentanyl Citrate (Fentanyl 2ml Vial) 100 mcg STK-MED ONCE .ROUTE ; Start 03/16/21 at 10:13; Stop 03/16/21 at 10:13; Status DC Midazolam HCl (Versed) 5 mg STK-MED ONCE .ROUTE ; Start 03/16/21 at 10:13; Stop 03/16/21 at 10:13; Status DC Heparin Sodium/ Sodium Chloride (HEPARIN for ARTERIAL LINE FLUSH) 1,000 unit 1X ONCE IART ; Start 03/16/21 at 10:45; Stop 03/16/21 at 10:52; Status DC Heparin Sodium/ Sodium Chloride (HEPARIN for ARTERIAL LINE FLUSH) 1,000 unit 1X ONCE IART ; Start 03/16/21 at 10:45; Stop 03/16/21 at 10:52; Status DC Midazolam HCl (Versed) 5 mg 1X ONCE IV ; Start 03/16/21 at 10:45; Stop 03/16/21 at 10:52; Status DC Fentanyl Citrate (Fentanyl 2ml Vial) 100 mcg 1X ONCE IV ; Start 03/16/21 at 10:45; Stop 03/16/21 at 10:52; Status DC Iodixanol (Visipaque 320) 100 ml 1X ONCE IART ; Start 03/16/21 at 10:45; Stop 03/16/21 at 10:52; Status DC Lidocaine HCl (Lidocaine 1% 20ml Vial) 20 ml 1X ONCE INJ ; Start 03/16/21 at 10:45; Stop 03/16/21 at 10:52; Status DC Info (CONTRAST GIVEN -- Rx MONITORING) 1 each PRN DAILY PRN MC SEE COMMENTS; Start 03/16/21 at 11:00; Stop 03/18/21 at 10:59 Active Scripts Active Miralax (Polyethylene Glycol 3350) 119 Gm Powder 17 Gm PO BID 5 Days Drink 1 capful in 8 oz of water twice daily for 5 days then once a day to keep stools regular Reported Famotidine 20 Mg Tablet 20 Mg PO HS Omeprazole 20 Mg Tablet.dr 20 Mg PO DAILY Lovastatin 40 Mg Tablet 40 Mg PO HS Levothyroxine Sodium 112 Mcg Tablet 112 Mcg PO DAILYAC Aspirin 325 Mg Tablet 325 Mg PO DAILY Albuterol Sulfate Hfa Inhaler (Albuterol Sulfate) 8.5 Gm Hfa.aer.ad 2 Puff INH Q4HRS PRN Lorazepam 0.5 Mg Tablet 0.5 Mg PO PRN Losartan Potassium 100 Mg Tablet 100 Mg PO DAILY Doxazosin Mesylate 2 Mg Tablet 2 Mg PO DAILY ROS: Review of Systems Review of System REVIEW OF SYSTEMS: GENERAL: Denies weakness SKIN: No bruising, hair changes or rashes. EYES: No blurred, double or loss of vision. NOSE AND THROAT: No history of nosebleeds, hoarseness or sore throat. HEART: No history of palpitations, chest pain or shortness of breath on exertion. LUNGS: Denies cough, hemoptysis, wheezing or shortness of breath. GASTROINTESTINAL: Denies changes in appetite, nausea, vomiting, diarrhea or constipation. GENITOURINARY: No history of frequency, urgency, hesitancy or nocturia. NEUROLOGIC: Denies history of numbness, tingling, or tremor. PSYCHIATRIC: No history of panic, anxiety or depression. ENDOCRINE: No history of heat or cold intolerance, polyuria or polydipsia. EXTREMITIES: Denies joint pain, pain on walking or stiffness. Physical Exam: Vital Signs: Vital Signs Date Time Temp Pulse Resp B/P (MAP) Pulse Ox O2 Delivery O2 Flow Rate FiO2 03/16/21 08:00 Room Air 03/16/21 07:00 97.8 80 20 92/57 (69) 92 97.8 Physcial Exam: GEN: No apparent distress. Alert and oriented HEENT: Normal cephalic, atraumatic, external auditory canals are patent EYES: Extraocular muscles are intact, pupil are equally round and reactive to light and accommodation MUSCULOSKELETAL: Well developed , well nourished, good range of motion ENDOCRINE: No thyromegaly was palpated LYMPHATICS: No cervical chain or axillary nodes were noted HEMATOPOIETIC: No bruising NECK: Supple, no JVD, no thyromegaly was noted LUNGS: Clear to auscultation in all lung curry without rhonchi or wheezing HEART: RRR, S!, S2 present. Peripheral pulses intact, no obvious murmurs not ed ABDOMEN: Soft, nontender. Positive bowel sounds, no organomegaly, normal bowel sounds EXTREMITIES: Without clubbing, cyanosis, or edema. Pedal pulses intact. Negative Homans sign NEUROLOGIC: Normal speech and tone. A&O x 3, moves all extremities, no obvious focal deficits PSYCHIATRIC: Normal affect, normal mood. Stable SKIN: No ulcerations or rashes, good skin turgor, no jaundice VASCULAR: Good capillary refill, neurovascular bundle appears to be intact Labs: Labs: Laboratory Tests Test 03/16/21 01:43 03/16/21 02:47 03/16/21 07:20 White Blood Count 11.6 x10^3/uL (4.0-11.0) Red Blood Count 4.04 x10^6/uL (4.30-5.70) Hemoglobin 11.9 g/dL (13.0-17.5) Hematocrit 35.8 % (39.0-53.0) Mean Corpuscular Volume 89 fL (79-100) Mean Corpuscular Hemoglobin 30 pg (25-35) Mean Corpuscular Hemoglobin Concent 33 g/dL (31-37) Red Cell Distribution Width 15.0 % (11.5-14.5) Platelet Count 259 x10^3/uL (140-400) Neutrophils (%) (Auto) 82 % (31-73) Lymphocytes (%) (Auto) 7 % (24-48) Monocytes (%) (Auto) 9 % (0-9) Eosinophils (%) (Auto) 2 % (0-3) Basophils (%) (Auto) 1 % (0-3) Neutrophils # (Auto) 9.5 x10^3/uL (1.8-7.7) Lymphocytes # (Auto) 0.8 x10^3/uL (1.0-4.8) Monocytes # (Auto) 1.1 x10^3/uL (0.0-1.1) Eosinophils # (Auto) 0.2 x10^3/uL (0.0-0.7) Basophils # (Auto) 0.1 x10^3/uL (0.0-0.2) Sodium Level 142 mmol/L (136-145) Potassium Level 4.3 mmol/L (3.5-5.1) Chloride Level 104 mmol/L (98-107) Carbon Dioxide Level 29 mmol/L (21-32) Anion Gap 9 (6-14) Blood Urea Nitrogen 37 mg/dL (8-26) Creatinine 1.3 mg/dL (0.7-1.3) Estimated GFR (Cockcroft-Gault) 52.3 BUN/Creatinine Ratio 28 (6-20) Glucose Level 155 mg/dL (70-99) Calcium Level 8.8 mg/dL (8.5-10.1) Magnesium Level 2.1 mg/dL (1.8-2.4) Total Bilirubin 0.4 mg/dL (0.2-1.0) Aspartate Amino Transf (AST/SGOT) 42 U/L (15-37) Alanine Aminotransferase (ALT/SGPT) 13 U/L (16-63) Alkaline Phosphatase 76 U/L (46-116) Troponin I Quantitative 6.400 ng/mL (0.000-0.055) 4.923 ng/mL (0.000-0.055) Total Protein 7.0 g/dL (6.4-8.2) Albumin 2.9 g/dL (3.4-5.0) Albumin/Globulin Ratio 0.7 (1.0-1.7) Prothrombin Time 14.9 SEC (11.7-14.0) Prothromb Time International Ratio 1.2 (0.8-1.1) Activated Partial Thromboplast Time 32 SEC (24-38) Laboratory Tests Test 03/16/21 01:43 03/16/21 02:47 03/16/21 07:20 White Blood Count 11.6 x10^3/uL (4.0-11.0) Red Blood Count 4.04 x10^6/uL (4.30-5.70) Hemoglobin 11.9 g/dL (13.0-17.5) Hematocrit 35.8 % (39.0-53.0) Mean Corpuscular Volume 89 fL (79-100) Mean Corpuscular Hemoglobin 30 pg (25-35) Mean Corpuscular Hemoglobin Concent 33 g/dL (31-37) Red Cell Distribution Width 15.0 % (11.5-14.5) Platelet Count 259 x10^3/uL (140-400) Neutrophils (%) (Auto) 82 % (31-73) Lymphocytes (%) (Auto) 7 % (24-48) Monocytes (%) (Auto) 9 % (0-9) Eosinophils (%) (Auto) 2 % (0-3) Basophils (%) (Auto) 1 % (0-3) Neutrophils # (Auto) 9.5 x10^3/uL (1.8-7.7) Lymphocytes # (Auto) 0.8 x10^3/uL (1.0-4.8) Monocytes # (Auto) 1.1 x10^3/uL (0.0-1.1) Eosinophils # (Auto) 0.2 x10^3/uL (0.0-0.7) Basophils # (Auto) 0.1 x10^3/uL (0.0-0.2) Sodium Level 142 mmol/L (136-145) Potassium Level 4.3 mmol/L (3.5-5.1) Chloride Level 104 mmol/L (98-107) Carbon Dioxide Level 29 mmol/L (21-32) Anion Gap 9 (6-14) Blood Urea Nitrogen 37 mg/dL (8-26) Creatinine 1.3 mg/dL (0.7-1.3) Estimated GFR (Cockcroft-Gault) 52.3 BUN/Creatinine Ratio 28 (6-20) Glucose Level 155 mg/dL (70-99) Calcium Level 8.8 mg/dL (8.5-10.1) Magnesium Level 2.1 mg/dL (1.8-2.4) Total Bilirubin 0.4 mg/dL (0.2-1.0) Aspartate Amino Transf (AST/SGOT) 42 U/L (15-37) Alanine Aminotransferase (ALT/SGPT) 13 U/L (16-63) Alkaline Phosphatase 76 U/L (46-116) Troponin I Quantitative 6.400 ng/mL (0.000-0.055) 4.923 ng/mL (0.000-0.055) Total Protein 7.0 g/dL (6.4-8.2) Albumin 2.9 g/dL (3.4-5.0) Albumin/Globulin Ratio 0.7 (1.0-1.7) Prothrombin Time 14.9 SEC (11.7-14.0) Prothromb Time International Ratio 1.2 (0.8-1.1) Activated Partial Thromboplast Time 32 SEC (24-38) Images: Images CXR IMPRESSION: Increase in interstitial markings bilaterally. This may represent interstitial infiltrates or edema. Recommend clinical correlation and follow-up. Assessment/Plan Assessment/Plan Chest pain concerning for unstable angina/NSTEMI Severe protein malnutrition Anemia of chronic disease Admit to medicine for further management Continue aspirin, consider Plavix if intermediate risk will defer this to cardiology Cardiology consulted for left heart cath Continue nitroglycerin as needed for pain Continue beta-rayne if blood pressures allow Continue high intensity statins IV morphine as needed Consider Lovenox Maintain O2 sats between 88 to 95% Trend troponins Repeat EKG in the a.m. Continue telemetry monitoring Monitor for electrolyte abnormalities Avoid NSAIDs In addition to my E/M visit, advance care planning done with A total time of 20 minutes was spent from 1040 to 11:00 face to face in discussion with the patient and regarding his goals of care, Justifications for Admission Other Justification VIRA NEWELL MD Mar 16, 2021 11:01
[2021-03-16] MEDS ORDERED: IV 1/2 NORMAL SALINE 1,000 ML IV SCH (11:30)
[2021-03-16] MEDS ORDERED: HEPARIN for IV BOLUS 10,000 UNIT/10 ML VIAL. IV PRN (12:00)
--- NOTE | 2021-03-16 13:15 | CARD ---
MR#: [id number] Date of Study: 03/16/2021 Ordering Physician: HOLLI VELEZ, Referring Physician: HOLLI VELEZ, Tech: RT Marifer(R)() APPROVED REPORT Technologist: RT Marifer(R)() Nurse: Elina Mckeon RN Procedure(s) performed: Left heart catheterization, selective coronary angiography and left ventricul ography Fluoro Time: 6.8 min Dose: 60 Gycm1 Contrast: 197cc's Mod Sed:47 min INDICATION The indication(s) include : non-STEMI . [facility] Clinical Frailty Scale [facility] Clinical Frailty Scale: Moderately Frail Heart Failure Heart Failure: No CASE TECHNIQUE IV conscious sedation was used throughout procedure with appropriate monitoring and was performed in the presence of a registered nurse who was an independent trained observer other than the physician p erforming the procedure. During this case, Fluoroscopy and low osmolar contrast were used for imaging . Specimen(s) Removed: No Estimated Blood loss: 15 cc's. PROCEDURE NARRATIVE After explaining the risk, benefits and alternative options, informed consent was obtained from kailyn nt. He was brought to the cardiac Chief Investigator and his right groin was prepped and draped in the usual f ashion. 10 cc of 2% lidocaine was infiltrated into the skin and subcutaneous tissues for local anest hesia. Arterial access was obtained in the right common femoral artery and a 6 Tongan sheath was ins erted. 6 Tongan JL4 catheter was used to perform selective angiography of the left coronary artery. After initial attempts to engage the right coronary artery with 6 [place]an JR4 were unsuccessful, this was engaged with 6 Tongan JL 0.75 guide catheter and angiography was performed. 6 Tongan pigtail ca theter was used to perform left ventriculography. Patient tolerated procedure well. Hemostasis was achieved using manual compression. There were no immediate complications. FINDINGS 1. Hemodynamics: Left ventricular end-diastolic pressure 18 mmHg. No pullback gradient across aorti c valve. 2. Left ventriculography: Normal left ventricle systolic function with ejection fraction estimated a t 55 to 60%. No significant mitral regurgitation seen. 3. Coronary angiography: a. The left main coronary artery arose from the left sinus of Valsalva, was short, gave rise to the left anterior descending and left circumflex arteries and did not show any significant stenosis. b. The left anterior descending artery showed ectatic proximal to mid segment and 70% calcified sten osis in the mid segment. The first diagonal branch which is a small to medium caliber vessel showed 50% proximal segment stenosis. The second diagonal branch which is a medium caliber vessel showed 50 % stenosis in the midsegment. c. The left circumflex artery showed 70% stenosis in the ostial/proximal segment and 80% stenosis in the midsegment. The obtuse marginal branch showed 60% stenosis in the midsegment. d. The right coronary artery was a dominant vessel arising from the right sinus of Valsalva, was aidan cified and showed 80% proximal segment stenosis, 90% mid segment stenosis, 80% distal segment stenosi s and 50% stenosis near the bifurcation. The posterolateral branch which is a medium caliber vessel showed 80% stenosis in the midsegment. Conclusion 1. Severe three-vessel coronary disease as described above 2. Normal left ventricle systolic function with ejection fraction estimated at 55 to 60% Recommendations Cardiothoracic surgery team consultation for possible coronary artery bypass surgery Signed by : Holli Velez, Electronically Approved : 03/16/2021 13:14:55
[2021-03-16] MEDS ORDERED: SERT50TA PO (14:37)
[2021-03-16] MEDS ORDERED: PANT40TA77 PO (14:37)
[2021-03-16] MEDS: ASPIRIN ENTERIC COATED 325 MG TABLET.DR. PO SCH (14:40)
[2021-03-16] MEDS: ATORVASTATIN CALCIUM 40 MG TABLET. PO SCH (21:49)
[2021-03-17] VITALS (7 sets, daily range): BP systolic 86–128; BP diastolic 48–76
[2021-03-17 07:32] LABS: HEMOGLOBIN 11.8 g/dL (13.0-17.5); RED BLOOD COUNT 3.98 x10^6/uL (4.30-5.70); RED CELL DISTRIBUTION WIDTH 15.3 % (11.5-14.5); WHITE BLOOD COUNT 10.1 x10^3/uL (4.0-11.0)
[2021-03-17] MEDS: ASPIRIN ENTERIC COATED 325 MG TABLET.DR. PO SCH (07:49)
[2021-03-17] MEDS: HEPARIN 25,000UTS/250ML PREMIX 250 ML IV PRN (07:54)
--- NOTE | 2021-03-17 10:30 | PDOC ---
PROGRESS NOTES Date of Service: DATE: 03/17/21 TIME: 10:30 Subjective Subjective Denied any chest pain or shortness of breath Objective Objective Vital Signs Date Time Temp Pulse Resp B/P (MAP) Pulse Ox O2 Delivery O2 Flow Rate FiO2 03/17/21 08:03 Room Air 03/17/21 07:00 98.7 81 16 98/65 (76) 95 98.7 03/16/21 11:20 2.0 Intake and Output 03/17/21 07:00 Intake Total 480 ml Output Total 625 ml Balance -145 ml Intake Oral 480 ml Output Urine Total 625 ml # Voids 5 # Bowel Movements 1 Physical Exam Abdomen: Soft, No tenderness Heart: Regular rate Extremities: No edema General: Alert, Oriented X3 HEENT: Atraumatic Lungs: Clear to auscultation Psych/Mental Status: Mood NL Assessment Assessment 1. Non-STEMI: Cardiac catheterization yesterday showed three-vessel coronary disease. Options of CABG referral versus high risk multivessel PCI versus conservative management considering his advanced age and limited activity tolerance were discussed with patient and family yesterday. Patient and family opted for medical management. Telemetry did not show any significant arrhythmias. Start Plavix to optimize therapy. We will start beta-blockers and nitrates as blood pressure tolerates.. 2. Hypertension: Blood pressure running low. Continue intravenous fluids and start beta-blockers 3. Hyperlipidemia: Continue statins 4. Hypothyroidism: On levothyroxine Plan Plan of Care Problems Medical Problems: (1) Chest pain Status: Acute (2) NSTEMI (non-ST elevated myocardial infarction) Status: Acute Comment Review of Relevant I have reviewed the following items clara (where applicable) has been applied. Labs Laboratory Tests Test 03/16/21 16:05 03/16/21 22:48 03/17/21 06:15 Heparin Anti-Xa Act, Unfractionated 0.12 IU/mL (0.30-0.70) 0.32 IU/mL (0.30-0.70) 0.26 IU/mL (0.30-0.70) White Blood Count 10.1 x10^3/uL (4.0-11.0) Red Blood Count 3.98 x10^6/uL (4.30-5.70) Hemoglobin 11.8 g/dL (13.0-17.5) Hematocrit 35.0 % (39.0-53.0) Mean Corpuscular Volume 88 fL (79-100) Mean Corpuscular Hemoglobin 30 pg (25-35) Mean Corpuscular Hemoglobin Concent 34 g/dL (31-37) Red Cell Distribution Width 15.3 % (11.5-14.5) Platelet Count 260 x10^3/uL (140-400) Medications Current Medications Aspirin (Ecotrin) 325 mg DAILYWBKFT PO Last administered on 03/17/21at 07:49; Start 03/16/21 at 13:00 Atorvastatin Calcium (Lipitor) 40 mg QHS PO Last administered on 03/16/21at 21:49; Start 03/16/21 at 21:00 Fentanyl Citrate (Fentanyl 2ml Vial) 100 mcg 1X ONCE IV Last administered on 03/16/21at 11:06; Start 03/16/21 at 10:45; Stop 03/16/21 at 10:52; Status DC Heparin Sodium (Porcine) (Heparin Sodium) 1,450 unit PRN Q6HRS PRN IV FOR UFH LEVEL LESS THAN 0.2 Last administered on 03/16/21at 17:02; Start 03/16/21 at 12:00 Heparin Sodium/ Dextrose 250 ml @ 0 mls/hr CONT PRN IV PER PROTOCOL Last administered on 03/17/21at 07:54; Start 03/16/21 at 12:00; Stop 03/18/21 at 12:00 Heparin Sodium/ Sodium Chloride (HEPARIN for ARTERIAL LINE FLUSH) 1,000 unit 1X ONCE IART Last administered on 03/16/21at 11:04; Start 03/16/21 at 10:45; Stop 03/16/21 at 10:52; Status DC Heparin Sodium/ Sodium Chloride (HEPARIN for ARTERIAL LINE FLUSH) 1,000 unit 1X ONCE IART Last administered on 03/16/21at 11:04; Start 03/16/21 at 10:45; Stop 03/16/21 at 10:52; Status DC Info (CONTRAST GIVEN -- Rx MONITORING) 1 each PRN DAILY PRN MC SEE COMMENTS; Start 03/16/21 at 11:00; Stop 03/18/21 at 10:59 Iodixanol (Visipaque 320) 100 ml 1X ONCE IART Last administered on 03/16/21at 11:04; Start 03/16/21 at 10:45; Stop 03/16/21 at 10:52; Status DC Lidocaine HCl (Lidocaine 1% 20ml Vial) 20 ml 1X ONCE INJ Last administered on 03/16/21at 11:05; Start 03/16/21 at 10:45; Stop 03/16/21 at 10:52; Status DC Midazolam HCl (Versed) 5 mg 1X ONCE IV Last administered on 03/16/21at 11:07; Start 03/16/21 at 10:45; Stop 03/16/21 at 10:52; Status DC Sodium Chloride 1,000 ml @ 100 mls/hr Q10H IV Last administered on 03/16/21at 12:16; Start 03/16/21 at 11:30; Stop 03/16/21 at 21:29; Status DC Vitals/I & O Vital Sign - Last 24 Hours 03/16/21 03/16/21 03/16/21 03/16/21 11:06 11:20 11:28 11:36 Temp 98.1 98.1 Pulse 80 79 Resp 14 18 18 B/P (MAP) 112/60 (77) Pulse Ox 100 100 93 93 O2 Delivery Nasal Cannula Nasal Cannula Room Air Room Air O2 Flow Rate 2.0 2.0 03/16/21 03/16/21 03/16/21 03/16/21 11:45 12:00 12:15 12:30 Pulse 78 74 74 70 Resp 18 18 18 18 B/P (MAP) 93/50 (64) 89/54 (66) 85/53 (64) 95/52 (66) Pulse Ox 92 92 92 94 O2 Delivery Room Air Room Air Room Air Room Air 03/16/21 03/16/21 03/16/21 03/16/21 13:00 13:30 14:00 15:00 Pulse 66 68 70 76 Resp 16 16 18 18 B/P (MAP) 93/54 (67) 95/53 (67) 107/58 (74) 104/61 (75) Pulse Ox 94 94 94 94 O2 Delivery Room Air Room Air Room Air Room Air 03/16/21 03/16/21 03/16/21 03/16/21 15:32 17:00 17:28 17:58 Temp 98.6 98.6 Pulse 69 76 Resp 18 18 16 B/P (MAP) 95/54 (68) 115/65 (82) Pulse Ox 94 95 94 94 O2 Delivery Room Air Room Air Room Air Room Air 03/16/21 03/16/21 03/16/21 03/17/21 19:00 20:00 23:00 02:45 Temp 97.8 97.9 98.6 97.8 97.9 98.6 Pulse 79 82 66 Resp 18 18 18 B/P (MAP) 116/58 (77) 96/53 (67) 110/71 (84) Pulse Ox 91 93 93 O2 Delivery Room Air Room Air Room Air Room Air 03/17/21 03/17/21 07:00 08:03 Temp 98.7 98.7 Pulse 81 Resp 16 B/P (MAP) 98/65 (76) Pulse Ox 95 O2 Delivery Room Air Room Air l Intake and Output 03/16/21 03/16/21 03/17/21 15:00 23:00 07:00 Intake Total 120 ml 360 ml Output Total 350 ml 275 ml Balance -230 ml 85 ml HOLLI HINKLE MD Mar 17, 2021 10:30
[2021-03-17] MEDS ORDERED: CLOPIDOGREL BISULFATE 75 MG TABLET PO ONE (10:45)
[2021-03-17] MEDS ORDERED: CARVEDILOL 3.125 MG TABLET. PO SCH (11:00)
[2021-03-17] MEDS: ISOSORBIDE MONONITRATE ER 30 MG TAB.ER.24H PO SCH (11:06)
--- NOTE | 2021-03-17 11:40 | PDOC ---
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 Continue telemetry monitoring Monitor for electrolyte abnormalities Avoid NSAIDs History of Present Illness History of Present Illness 03/17/2021 No acute events overnight. Patient is chest pain-free. Still waiting for the blood pressures to return back to normal. Will likely stop heparin drip today. Blood pressure has improved to 103/60. Heart rate of 71. Pending cardiology evaluation and optimization of medical management. Discussion was held with the patient and with cardiology and myself about options for treatment for three-vessel disease. Patient states that he does not wish to go through major surgery and opts to try medical management first before placing a stent. Dr. Mark George felt that this was reasonable and will comply and optimize his medications. Anticipate discharge in the next 24 to 48 hours. Patient's chart, labs, images were reviewed and discussed with RN 85 year old male with a past medical history of hypertension and hyperlipedmia presents with the chief complaint of chest pain. Patient states pain was presents when he woke up @ 0900hrs yesterday. Pain is primarily to left scapular with radiation to substernal chest, neck and lower abdomen. Pain is currently rated a 7/10. He states he has associated shortness of breath and nausea. Pain became progressively worse tonight so he called 911. Patient taken to the left heart cath as troponins increased to 6.4 Vitals/I&O Vitals/I&O: Vital Signs Date Time Temp Pulse Resp B/P (MAP) Pulse Ox O2 Delivery O2 Flow Rate FiO2 03/17/21 11:06 71 103/60 03/17/21 10:55 98.6 16 93 Room Air 98.6 03/16/21 11:20 2.0 I & O 03/16/21 03/16/21 03/17/21 15:00 23:00 07:00 Intake Total 120 ml 360 ml Output Total 350 ml 275 ml Balance -230 ml 85 ml Physical Exam General: Alert, Oriented X3 Heart: Regular rate Abdomen: Soft, No tenderness Extremities: No edema Labs Labs: Laboratory Tests Test 03/16/21 16:05 03/16/21 22:48 03/17/21 06:15 Heparin Anti-Xa Act, Unfractionated 0.12 IU/mL (0.30-0.70) 0.32 IU/mL (0.30-0.70) 0.26 IU/mL (0.30-0.70) White Blood Count 10.1 x10^3/uL (4.0-11.0) Red Blood Count 3.98 x10^6/uL (4.30-5.70) Hemoglobin 11.8 g/dL (13.0-17.5) Hematocrit 35.0 % (39.0-53.0) Mean Corpuscular Volume 88 fL (79-100) Mean Corpuscular Hemoglobin 30 pg (25-35) Mean Corpuscular Hemoglobin Concent 34 g/dL (31-37) Red Cell Distribution Width 15.3 % (11.5-14.5) Platelet Count 260 x10^3/uL (140-400) Assessment and Plan Assessmemt and Plan Problems Medical Problems: (1) Chest pain Status: Acute (2) NSTEMI (non-ST elevated myocardial infarction) Status: Acute Comment Review of Relevant I have reviewed the following items clara (where applicable) has been applied. Medications: Current Medications Medications (Trade) Dose Ordered Sig/Emanuel Route PRN Reason Start Time Stop Time Status Last Admin Dose Admin Heparin Sodium/ Dextrose 250 ml @ 0 mls/hr CONT PRN IV PER PROTOCOL 03/16/21 12:00 03/18/21 12:00 03/17/21 07:54 Heparin Sodium (Porcine) (Heparin Sodium) 1,450 unit PRN Q6HRS PRN IV FOR UFH LEVEL LESS THAN 0.2 03/16/21 12:00 03/16/21 17:02 Aspirin (Ecotrin) 325 mg DAILYWBKFT PO 03/16/21 13:00 03/17/21 07:49 Atorvastatin Calcium (Lipitor) 40 mg QHS PO 03/16/21 21:00 6/19/21 21:49 Clopidogrel Bisulfate (Plavix) 300 mg 1X ONCE PO 03/17/21 10:45 03/17/21 10:46 DC 03/17/21 11:05 Carvedilol (Coreg) 3.125 mg BIDWMEALS PO 03/17/21 11:00 03/17/21 11:04 Isosorbide Mononitrate (Imdur) 30 mg DAILY PO 03/17/21 11:00 03/17/21 11:06 Justifications for Admission Other Justification VIRA NEWELL MD Mar 17, 2021 11:40
[2021-03-17] MEDS ORDERED: IV NORMAL SALINE 1000ML BAG 1,000 ML IV ONE (14:45)
[2021-03-17] MEDS: ATORVASTATIN CALCIUM 40 MG TABLET. PO SCH (22:21)
[2021-03-18 03:00] VITALS: BP 122/58
[2021-03-18 06:06] VITALS: BP 131/60
[2021-03-18] MEDS: HEPARIN 25,000UTS/250ML PREMIX 250 ML IV PRN (06:15)
[2021-03-18] MEDS ORDERED: CLOPIDOGREL BISULFATE 75 MG TABLET PO SCH (08:00)
[2021-03-18] MEDS: ISOSORBIDE MONONITRATE ER 30 MG TAB.ER.24H PO SCH (09:25)
[2021-03-18] MEDS: ASPIRIN ENTERIC COATED 325 MG TABLET.DR. PO SCH (09:25)
--- NOTE | 2021-03-18 09:27 | PDOC ---
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 Continue telemetry monitoring Monitor for electrolyte abnormalities Avoid NSAIDs History of Present Illness History of Present Illness 85 year old male with a past medical history of hypertension and hyperlipedmia presents with the chief complaint of chest pain. Patient states pain was presents when he woke up @ 0900hrs yesterday. Pain is primarily to left scapular with radiation to substernal chest, neck and lower abdomen. Pain is currently rated a 7/10. He states he has associated shortness of breath and nausea. Pain became progressively worse tonight so he called 911. Patient taken to the left heart cath as troponins increased to 6.4 03/17: No acute events overnight. Patient is chest pain-free. Still waiting for the blood pressures to return back to normal. Will likely stop heparin drip today. Blood pressure has improved to 103/60. Heart rate of 71. Pending cardiology evaluation and optimization of medical management. Discussion was held with the patient and with cardiology and myself about options for treatment for three-vessel disease. Patient states that he does not wish to go through major surgery and opts to try medical management first before placing a stent. Dr. Velez felt that this was reasonable and will comply and optimize his medications. Anticipate discharge in the next 24 to 48 hours. Patient's chart, labs, images were reviewed and discussed with RN Troponin trending downward. No chest pain or shortness of breath today. He is eating and his only complaint is that he is missing his upper dentures. Vitals/I&O Vitals/I&O: Vital Signs Date Time Temp Pulse Resp B/P (MAP) Pulse Ox O2 Delivery O2 Flow Rate FiO2 03/18/21 06:06 97.3 48 18 131/60 (83) 94 Room Air 97.3 I & O 03/17/21 03/17/2121 14:53 22:53 06:53 Intake Total 50 ml 650 ml 250 ml Output Total 200 ml 250 ml 200 ml Balance -150 ml 400 ml 50 ml Physical Exam General: Alert, Oriented X3 Heart: Regular rate Abdomen: Soft, No tenderness Extremities: No edema Labs Labs: Laboratory Tests Test 03/17/21 14:30 03/17/21 20:30 03/18/21 03:45 Heparin Anti-Xa Act, Unfractionated 0.20 IU/mL (0.30-0.70) 0.39 IU/mL (0.30-0.70) 0.55 IU/mL (0.30-0.70) Assessment and Plan Assessmemt and Plan Problems Medical Problems: (1) Chest pain Status: Acute (2) NSTEMI (non-ST elevated myocardial infarction) Status: Acute Comment Review of Relevant I have reviewed the following items clara (where applicable) has been applied. Medications: Current Medications Medications (Trade) Dose Ordered Sig/Emanuel Route PRN Reason Start Time Stop Time Status Last Admin Dose Admin Clopidogrel Bisulfate (Plavix) 300 mg 1X ONCE PO 03/17/21 10:45 03/17/21 10:46 DC 03/17/21 11:05 Carvedilol (Coreg) 3.125 mg BIDWMEALS PO 03/17/21 11:00 03/17/21 16:11 DC 03/17/21 11:04 Isosorbide Mononitrate (Imdur) 30 mg DAILY PO 03/17/21 11:00 03/17/21 11:06 Sodium Chloride 1,000 ml @ 1,000 mls/hr 1X ONCE IV 03/17/21 14:45 03/17/21 15:44 DC 03/17/21 14:45 Justifications for Admission Other Justification LUIS WHITTEN MD Mar 18, 2021 09:27
[2021-03-18 10:30] VITALS: BP 114/55
[2021-03-18] MEDS ORDERED: CARV3.1210 PO (13:35)
[2021-03-18] MEDS ORDERED: CLOP75TA PO (13:35)
[2021-03-18] MEDS ORDERED: NITR0.4T24 SL (13:35)
--- NOTE | 2021-03-18 13:35 | NUR ---
SS following for discharge planning. SS reviewed pt chart and discussed with pt RN. Pt is from home with spouse and is currently on room air. Heparin drip. PT/OT ordered. SS will continue to follow for discharge planning.
[2021-03-18] MEDS ORDERED: CARVEDILOL 3.125 MG TABLET. PO SCH (14:00)
--- NOTE | 2021-03-18 14:04 | PDOC ---
SIMONE WEISS CULINARY MANAGER 03/18/21 1404: CARDIO Progress Notes Date and Time Date of Service 03/18/21 Time of Evaluation 1400 Subjective Subjective: No Chest Pain, No shortness of breath, No Palpitations Vitals Vitals Vital Signs Date Time Temp Pulse Resp B/P (MAP) Pulse Ox O2 Delivery O2 Flow Rate FiO2 03/18/21 10:30 97.4 60 16 114/55 (74) 95 Room Air 97.4 Weight Weight [ ] Input and Output Intake and Output Intake and Output 03/18/21 07:00 Intake Total 950 ml Output Total 650 ml Balance 300 ml Intake Oral 700 ml IV Total 250 ml Output Urine Total 650 ml # Voids 9 # Bowel Movements 2 Laboratory Labs Laboratory Tests Test 03/17/21 14:30 03/17/21 20:30 03/18/21 03:45 Heparin Anti-Xa Act, Unfractionated 0.20 IU/mL (0.30-0.70) 0.39 IU/mL (0.30-0.70) 0.55 IU/mL (0.30-0.70) Physical Exam HEENT: Neck Supple W Full Motion Chest: Symmetric LUNGS: Clear to Auscultation Heart: RRR Abdomen: Soft N/T Extremities: No Edema Neurology: alert, follow commands Assessment Assessment 1. Non-STEMI: Cardiac catheterization yesterday showed 3V CAD. Options of CABG referral versus high risk multivessel PCI versus conservative management consid ering his advanced age and limited activity tolerance were discussed with patient and family yesterday. Patient and family opted for medical management. Telemetry did not show any significant arrhythmias. Secondary prevention including ASA/Plavix. Continue BB 2. Hypertension; low end. No ACEi/ARB with low end BP 3. Hyperlipidemia: Continue statins 4. Hypothyroidism: On levothyroxine Justicifation of Admission Dx: Justifications for Admission: Justification of Admission Dx: N/A HOLLI HINKLE MD 03/19/21 0923: CARDIO Progress Notes Assessment Assessment Patient seen and examined 03/18/2021. Agree with KEYMODULE ASSEMBLY SUPERVISOR's assessment and plan. Non-STEMI with three-vessel coronary artery disease being planned for medical management for now based on patient's and family's wishes. Patient is currently chest pain-free and telemetry did not show any significant arrhythmias. Resume Coreg. Blood pressure borderline low. We will consider reinitiating long-acting nitrates as an outpatient. Okay for DC from cardiac standpoint. Cardiac rehabilitation referral. SIMONE WEISS APRN Mar 18, 2021 14:04 HOLLI HINKLE MD Mar 19, 2021 09:38
[2021-03-18 15:02] VITALS: BP 121/64
--- NOTE | 2021-03-18 18:28 | CARD ---
MR#: [id number] Date of Study: 03/18/2021 Ordering Physician: HOLLI HINKLE, Referring Physician: Ewelina GERONIMO: Vince Lopez [facility] [place] APPROVED REPORT EXAM: Two-dimensional and M-mode echocardiogram with Doppler and color Doppler. Other Information Quality : GoodAverageHR: 80bpm Rhythm : NSR INDICATION 2D DIMENSIONS Left Atrium(2D)3.2 (1.6-4.0cm)IVSd0.8 (0.7-1.1cm) Aortic Root(2D)3.8 (2.0-3.7cm)LVDd4.3 (3.9-5.9cm) LVOT Diameter2.2 (1.8-2.4cm)PWd0.8 (0.7-1.1cm) LVDs2.5 (2.5-4.0cm)FS (%) 42.0 % SV62.5 mlLVEF(%)73.2 (>50%) Aortic Valve AoV Peak Clay.126.7cm/sAoV VTI26.0cm AO Peak GR.6.4mmHgLVOT Peak Clay.77.5cm/s AO Mean GR.4mmHgAVA (VMAX)2.35cm2 Mitral Valve MV E Tzytjgmy16.4cm/sMV E Peak Gr.4mmHg MV DECEL [id number] A Kdfwoqwu153.0cm/s MV E Mean Gr.1mmHgE/A Ratio0.4 Pulmonary Valve PV Peak Cmtksjrc81.3cm/s Tricuspid Valve TR P. Lvrndkpe141qm/sTR Peak Gr.27mmHg LEFT VENTRICLE The left ventricle is normal size. There is normal left ventricular wall thickness. The left ventricu lar systolic function is normal and the ejection fraction is within normal range. EF 55% There is nor mal LV segmental wall motion. Tissue Doppler imaging reveals moderate left ventricular diastolic dysf unction. No left ventricle thrombus noted on this study. RIGHT VENTRICLE The right ventricle is mildly to moderately dilated. There is normal right ventricular wall thickness . The right ventricular systolic function is mildly decreased. ATRIA The left atrium size is normal. The right atrium size is normal. The interatrial septum is intact wit h no evidence for an atrial septal defect or patent foramen ovale as noted on 2-D or Doppler imaging. AORTIC VALVE The aortic valve is normal in structure and function. Doppler and Color Flow revealed no significant aortic regurgitation. There is no significant aortic valvular stenosis. There is no aortic valvular v egetation. MITRAL VALVE The mitral valve is normal in structure and function. There is no evidence of mitral valve prolapse. There is no mitral valve stenosis. Doppler and Color-flow revealed trace mitral regurgitation. TRICUSPID VALVE The tricuspid valve is normal in structure and function. Doppler and Color Flow revealed trace tricus pid regurgitation. There is no tricuspid valve prolapse or vegetation. There is no tricuspid valve st enosis. PULMONIC VALVE Doppler and Color Flow revealed mild pulmonic valvular regurgitation. There is no pulmonic valvular s tenosis. GREAT VESSELS The aortic root is normal in size. The ascending aorta is normal in size. The IVC is normal in size a nd collapses >50% with inspiration. PERICARDIAL EFFUSION There is no pleural effusion. There is no evidence of significant pericardial effusion. Critical Notification Critical Value: No <Conclusion> The left ventricular systolic function is normal and the ejection fraction is within normal range. EF 55% There is normal LV segmental wall motion. Doppler and Color Flow revealed mild pulmonic valvular regurgitation. The right ventricle is mildly to moderately dilated. The right ventricular systolic function is mildly decreased. Signed by : Roberto Sanchez, Electronically Approved : 03/18/2021 18:27:51
--- NOTE | 2021-03-18 19:15 | NUR ---
Discharge Note: TERRANCE AGARWAL [address] Discharge instructions and discharge home medications reviewed with Family Member and a copy given. All questions have been answered and understanding verbalized. The following instructions and handouts were given: DISCHARGE AMD FOLLOW UP INSTRUCTIONS, CALLED [facility] TO PHARMACY Discontinued lines and drains: Peripheral IV intact. Patient discharged to Home or Self Care with Spouse via Wheelchair
--- NOTE | 2021-03-18 20:59 | PDOC3 ---
Discharge Summary Visit Information Date of Admission: Mar 16, 2021 Date of Discharge: Mar 18, 2021 Admitting Diagnosis: NSTEMI Final Diagnosis Problems Medical Problems: (1) Chest pain Status: Acute (2) NSTEMI (non-ST elevated myocardial infarction) Status: Acute Brief Hospital Course Allergies Allergies Coded Allergies Type Severity Reaction Last Updated Verified Sulfa (Sulfonamide Antibiotics) Allergy Intermediate itching 05/17/14 Yes dicyclomine Allergy Intermediate itching 05/17/14 Yes Vital Signs Vital Signs Date Time Temp Pulse Resp B/P (MAP) Pulse Ox O2 Delivery O2 Flow Rate FiO2 03/18/21 15:02 98.1 76 16 121/64 (83) 94 Room Air 98.1 Lab Results Laboratory Tests Test 03/16/21 22:48 03/17/21 06:15 03/17/21 14:30 03/17/21 20:30 Heparin Anti-Xa Act, Unfractionated 0.32 IU/mL (0.30-0.70) 0.26 IU/mL (0.30-0.70) 0.20 IU/mL (0.30-0.70) 0.39 IU/mL (0.30-0.70) White Blood Count 10.1 x10^3/uL (4.0-11.0) Red Blood Count 3.98 x10^6/uL (4.30-5.70) Hemoglobin 11.8 g/dL (13.0-17.5) Hematocrit 35.0 % (39.0-53.0) Mean Corpuscular Volume 88 fL (79-100) Mean Corpuscular Hemoglobin 30 pg (25-35) Mean Corpuscular Hemoglobin Concent 34 g/dL (31-37) Red Cell Distribution Width 15.3 % (11.5-14.5) Platelet Count 260 x10^3/uL (140-400) Test 03/18/21 03:45 Heparin Anti-Xa Act, Unfractionated 0.55 IU/mL (0.30-0.70) Laboratory Tests Test 03/18/21 03:45 Heparin Anti-Xa Act, Unfractionated 0.55 IU/mL (0.30-0.70) Brief Hospital Course Mr Agudelo is an 85 year old male with a past medical history of hypertension and hyperlipidemia who presented with the chief complaint of chest pain. Patient states pain was presents when he woke up @ 0900hrs 03/15/2021 Pain was primarily to left scapular with radiation to substernal chest, neck and lower abdomen. He states he had associated shortness of breath and nausea. Troponins increased to 6.4. Started on heparin GTT for NSTEMI, to clinical lab technologist on 03/17. Discussion was held with the patient and with cardiology and myself about options for treatment for three-vessel disease. Patient states that he does not wish to go through major surgery and opts to try medical management first before placing a stent. Dr. Velez felt that this was reasonable and will comply and optimize his medications. Day of discharge. Troponin trending downward. No chest pain or shortness of breath today. He is eating and his only complaint is that he is missing his upper dentures. Echo 03/18/2021: The left ventricular systolic function is normal and the ejection fraction is within normal range. EF 55% There is normal LV segmental wall motion. Doppler and Color Flow revealed mild pulmonic valvular regurgitation. The right ventricle is mildly to moderately dilated. The right ventricular systolic function is mildly decreased. 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 Options of CABG referral versus high risk multivessel PCI versus conservative management considering his advanced age and limited activity tolerance were discussed with patient and family. Patient and family opted for medical management. Telemetry did not show any significant arrhythmias. Secondary prevention including ASA/Plavix. Continue BB Hypertension; low end. No ACEi/ARB with low end BP Hyperlipidemia: Continue statins Hypothyroidism: On levothyroxine Continue aspirin + Plavix Continue nitroglycerin as needed for pain Continue beta-rayne if blood pressures allow Continue high intensity statin Avoid NSAIDs Greater than 30 minutes spent on d/c home with self care and outpatient cardiac rehab referral. therapy noted home independent Discharge Information Condition at Discharge: Improved Follow Up: Weeks (1) Disposition/Orders: D/C to Home Scheduled Aspirin (Aspirin) 325 Mg Tablet, 325 MG PO DAILY, (Reported) Entered as Reported by: DANAE OSBORNE on 04/03/14 1143 Carvedilol (Carvedilol ) 3.125 Mg Tablet, 3.125 MG PO BIDWMEALS for CAD for 30 Days, #60 Ref 5 Prescribed by: LUIS WHITTEN MD on 03/18/21 1335 Clopidogrel Bisulfate (Clopidogrel) 75 Mg Tablet, 75 MG PO DAILYWBKFT for CAD for 30 Days, #30 Ref 11 Prescribed by: LUIS WHITTEN MD on 03/18/21 1335 Levothyroxine Sodium (Levothyroxine Sodium) 112 Mcg Tablet, 125 MCG PO DAILYAC for thyroid supp, #30 Ref 0 (Reported) Entered as Reported by: DANAE OSBORNE on 04/03/14 1143 Last Action: Edited on 03/16/211436 by ALEKSANDR HUITRON Lovastatin (Lovastatin) 40 Mg Tablet, 40 MG PO HS, (Reported) Entered as Reported by: DANAE OSBORNE on 04/03/14 1143 Pantoprazole Sodium (Protonix ) 40 Mg Tablet.dr, 40 MG PO DAILYAC for GERD, (Reported) Entered as Reported by: ALEKSANDR HUITRON on 03/16/211436 Last Action: New Order on 03/16/211436 by ALEKSANDR HUITRON Polyethylene Glycol 3350 (Miralax) 119 Gm Powder, 17 GM PO BID for constipation for 5 Days, #255 Ref 0 Drink 1 capful in 8 oz of water twice daily for 5 days then once a day to keep stools regular Prescribed by: BISI ESTEVES APRN on 05/17/202124 Sertraline Hcl (Zoloft) 50 Mg Tablet, 1 TAB PO DAILY for anxiety, #30 Ref 1 (R eported) Entered as Reported by: ALEKSANDR HUITRON on 03/16/211436 Last Action: New Order on 03/16/211436 by ALEKSANDR HUITRON Scheduled PRN Albuterol Sulfate (Albuterol Sulfate Hfa Inhaler) 8.5 Gm Hfa.aer.ad, 2 PUFF INH Q4HRS PRN for SHORTNESS OF BREATH, Ref 0 (Reported) Entered as Reported by: DANAE OSBORNE on 04/03/14 1143 Lorazepam (Lorazepam) 0.5 Mg Tablet, 0.5 MG PO for ANXIETY / AGITATION, (Reported) Entered as Reported by: DANAE OSBORNE on 04/03/14 1143 Nitroglycerin (Nitrostat) 0.4 Mg Tab.subl, 0.4 MG SL PRN Q5MIN PRN for CHEST PAIN for 30 Days, #9 Ref 5 Prescribed by: LUIS WHITTEN MD on 03/18/21 1335 Discontinued Medications Doxazosin Mesylate (Doxazosin Mesylate) 2 Mg Tablet, 2 MG PO DAILY, (Reported) Entered as Reported by: DANAE OSBORNE on 04/03/14 1143 Famotidine (Famotidine) 20 Mg Tablet, 20 MG PO HS, (Reported) Entered as Reported by: TIM HERNADEZ on 05/17/14 1214 Losartan Potassium (Losartan Potassium) 100 Mg Tablet, 50 MG PO DAILY for HTN, (Reported) Entered as Reported by: DANAE OSBORNE on 04/03/14 1143 Last Action: Edited on 03/16/21 1437 by ALEKSANDR HUITRON Omeprazole (Omeprazole) 20 Mg Tablet.dr, 20 MG PO DAILY, (Reported) Entered as Reported by: TIM HERNADEZ on 05/17/14 1214 Justicifation of Admission Dx: Justifications for Admission: Justification of Admission Dx: N/A LUIS WHITTEN MD Mar 18, 2021 20:59
== END 2021-03-18 19:17 | disposition home or self-care (01) | DRG 280 ==
LOC: ER 01:21 → 2 SOUTH 02:39
PROVIDERS: ADMIT Family Medicine; ATTEND Family Medicine
PROC: 4A023N7 Measurement of Cardiac Sampling and Pressure, Left Heart, Percutaneous Approach (ICD-10-PCS; principal; 2021-03-16)
PROC: B2111ZZ Fluoroscopy of Multiple Coronary Arteries using Low Osmolar Contrast (ICD-10-PCS; 2021-03-16)
PROC: B2151ZZ Fluoroscopy of Left Heart using Low Osmolar Contrast (ICD-10-PCS; 2021-03-16)
DX: I21.4 Non-ST elevation (NSTEMI) myocardial infarction (principal); E43 Unspecified severe protein-calorie malnutrition; D63.8 Anemia in other chronic diseases classified elsewhere; E03.9 Hypothyroidism, unspecified; E78.00 Pure hypercholesterolemia, unspecified; E78.5 Hyperlipidemia, unspecified; I10 Essential (primary) hypertension; I25.10 Atherosclerotic heart disease of native coronary artery without angina pectoris; I37.1 Nonrheumatic pulmonary valve insufficiency; J43.9 Emphysema, unspecified; F41.9 Anxiety disorder, unspecified; Z68.20 Body mass index [BMI] 20.0-20.9, adult; Z88.2 Allergy status to sulfonamides; Z88.8 Allergy status to other drugs, medicaments and biological substances; Z82.49 Family history of ischemic heart disease and other diseases of the circulatory system; Z87.891 Personal history of nicotine dependence; Z90.49 Acquired absence of other specified parts of digestive tract; Z79.899 Other long term (current) drug therapy
CPT/HCPCS: 36415; 71045; 80053; 83735; 84484; 85025; 85027; 85520; 85610; 85730; 93005; 93306; 93458; 99152; 99153; C1769; J1644; J2250; J2270; J3010; J3490; J7030; Q9967; 99285-25; G0378